=== PATIENT | male | born 1950 | race Hispanic/Latino ===

== ENCOUNTER 2019-03-05 06:00 | Day surgery (SDC) | payer OTHER ==
[2019-03-02 15:18] VITALS: BP 117/70
[2019-03-02 15:25] LABS: BASOPHILS % (AUTO) 0.6 % (0.0-5.0); HEMATOCRIT 38.8 % (42-54); LYMPHOCYTES % (AUTO) 28.5 % (21.0-51.0); MEAN CORPUSCULAR HEMOGLOBIN 34.7 pg (27.0-33.0); MEAN CORPUSCULAR HGB CONC 34.3 g/dL (32.0-36.0); MONOCYTES % (AUTO) 6.8 % (3.0-13.0); NEUTROPHILS % (AUTO) 59.1 % (40.0-77.0); PLATELET COUNT (AUTO) 208 K/uL (130-400); RED BLOOD CELL COUNT(AUTO) 3.84 MIL/uL (4.50-6.20); RED CELL DISTRIBUTION WIDTH 13.1 % (11.0-15.5); WHITE BLOOD COUNT (AUTO) 6.9 K/uL (4.8-10.8)
[2019-03-02 15:29] LABS: APPEARANCE,URINE Clear (CLEAR); BILIRUBIN,URINE Small (NEGATIVE); COLOR,URINE Dark Yellow (YELLOW); GLUCOSE, URINE (UA) Negative (NEGATIVE); KETONES,URINE Negative (NEGATIVE); LEUKOCYTE ESTERASE ,URINE Small (NEGATIVE); NITRATE,URINE Negative (NEGATIVE); OCCULT BLOOD,URINE Negative (NEGATIVE); PROTEIN,URINE Negative (NEGATIVE)
[2019-03-02 15:33] LABS: CREATININE 0.8 mg/dL (0.5-1.5); POTASSIUM 4.4 mmol/L (3.5-5.1)
[2019-03-02 15:35] LABS: INR 0.99 (0.85-1.15); PARTIAL THROMBOPLASTIN TIME 26.4 SEC (26.3-35.5); PROTHROMBIN TIME 10.4 SEC (9.6-11.6)
[2019-03-02 15:41] LABS: BACTERIA,URINE Moderate /HPF (None Seen); MUCUS,URINE Moderate LPF (None Seen)
--- NOTE | 2019-03-02 16:39 | NUR ---
SPOKE WITH DARRIAN CARLIN ABOUT ABNORMAL LABS NO NEW ORDERS AT THIS TIME, CONTINUE WITH PROCEDURE.
[2019-03-05] VITALS (9 sets, daily range): BP systolic 100–153; BP diastolic 56–86
[~2019-03-05] VITALS: Ht 172.7 cm; Wt 79.5 kg
[~2019-03-05 06:00] MED LIST: ASPI-1005 PO; CLOP75TA32 PO; ISOS30TA6 PO; LISI10TA7 PO; METO50TA18 PO; OMEG-144 PO; RANO500T3 PO; ROSU20TA31 PO; SODIUM CHLORIDE 0.9% 500ML 500 ML IV SCH; VITA1CAP85 PO
[2019-03-05] MEDS ORDERED: SODIUM CHLORIDE 0.9% 1000ML 1,000 ML IV ONE (07:31)
[2019-03-05] MEDS ORDERED: LIDOCAINE HCL 2% 20ML ONE (08:15)
[2019-03-05] MEDS ORDERED: BIVALIRUDIN 250 MG/VIAL IV ONE (08:17)
[2019-03-05] MEDS ORDERED: NICARDIPINE HCL 25 MG/10 ML ML IV ONE (08:17)
[2019-03-05] MEDS ORDERED: HEPARIN SODIUM 1000UNIT/ML 10ML VIAL ONE (08:17)
[2019-03-05] MEDS ORDERED: NITROGLYCERIN 5 MG/ML 10 ML VIAL IV ONE (08:17)
[2019-03-05] MEDS ORDERED: FENTANYL CITRATE PF 50 MCG/1 ML 2ML VIAL ONE (08:19)
[2019-03-05] MEDS ORDERED: IOHEXOL 350 MG/ML 100ML INFUS..BTL IV ONE (08:19)
[2019-03-05] MEDS ORDERED: MIDAZOLAM HCL 1 MG/ML 2ML VIAL ONE (08:19)
[2019-03-05] MEDS ORDERED: IOHEXOL-350 50ML VIAL IV ONE (08:19)
[2019-03-05] MEDS ORDERED: ATROPINE SULFATE 0.1 MG/ML 10 ML SYG IVP ONE (09:59)
[2019-03-05] MEDS ORDERED: LIDOCAINE PF 2% 5ML ABBOJECT ONE (09:59)
[2019-03-05] MEDS ORDERED: DOPAMINE HCL 400 MG/D5%-WATER 0 ML IV ONE (09:59)
[2019-03-05] MEDS ORDERED: SODIUM CHLORIDE 0.9% 1000ML 1,000 ML IV SCH (10:35)
--- NOTE | 2019-03-05 10:40 | NUR ---
ASSESSMENT RECEIVED PT FROM [employer]IN[employer] STAFF ARIEL. INSTRUCTED PT ON IMPORTance of keeping right leg STRAIGHT AND NOT LIFTING HEAD UP OFF OF BED. PT AND FAMILY VERBALIZED UNDERSTANDING. REPORT GIVEN TO EMERY GARCIA.
--- NOTE | 2019-03-05 10:57 | NUR ---
PT RECEIVED AND ASSESSED BY JOY STANFORD RN UPON ARRIVAL.
--- NOTE | 2019-03-05 10:59 | NUR ---
PT. IS RESTING COMFORTABLY PULSES ARE STRONG AND BILATERAL TO L/EXT. RT. GROIN IS SOFT, DRESSING IS DRY AND INTACT.
--- NOTE | 2019-03-05 12:50 | NUR ---
PER GLENN RN/ PT. WILL BE SEEN OUTPATIENT MAY EAT AND GO HOME AND F./U WITH DR. PALOMARES.
--- NOTE | 2019-03-05 14:15 | NUR ---
PT. LEFT VIA WHEELCHAIR IN PVT CAR WITH SON. Mary APPT SCHEDULED WITH DR. PALOMARES. PT HAND NO COMPLICATION UPON D/C. NO BLEEDING AND NO HEMATOMA, NO PAIN UPON D/C PEDAL PULSES PRESENT TO BOTH LOWER/EXT.
== END 2019-03-05 14:15 ==
LOC: DAH 06:00 → SUH 06:00
PROVIDERS: ATTEND Internal Medicine Cardiovascular Disease
DX: I25.118 Atherosclerotic heart disease of native coronary artery with other forms of angina pectoris (principal); R94.39 Abnormal result of other cardiovascular function study; I10 Essential (primary) hypertension; E78.5 Hyperlipidemia, unspecified; I73.9 Peripheral vascular disease, unspecified; F17.210 Nicotine dependence, cigarettes, uncomplicated; Z72.89 Other problems related to lifestyle; Z79.82 Long term (current) use of aspirin; Z79.899 Other long term (current) drug therapy; Z79.01 Long term (current) use of anticoagulants; Z82.49 Family history of ischemic heart disease and other diseases of the circulatory system
CPT/HCPCS: 36415; 71045; 80048; 81001; 85025; 85610; 85730; 92920; 93005; 93459; A4215; A4216; A4221; A4222; A4223 ×3; A4606; A4663; C1725 ×2; C1760; C1769 ×4; C1887; C1894 ×3; J0583; J1644 ×2; J2250; J3010; J3490 ×2; J7030; Q9965 ×2; Q9967 ×2; 99156; 99157; J0461; J1265; J2001

== ENCOUNTER 2019-07-06 10:44 | Emergency (ER) | payer OTHER ==
[~2019-07-06 10:44] MED LIST changes: -ASPI-1005 PO; -CLOP75TA32 PO; -ISOS30TA6 PO; -LISI10TA7 PO; -METO50TA18 PO; -OMEG-144 PO; -RANO500T3 PO; -SODIUM CHLORIDE 0.9% 500ML 500 ML IV SCH
[2019-07-06 11:12] LABS: APPEARANCE,URINE TURBID (CLEAR); BILIRUBIN,URINE MODERATE (NEGATIVE); COLOR,URINE BROWN (YELLOW); GLUCOSE, URINE (UA) NEGATIVE (NEGATIVE); KETONES,URINE 5 mg/dL (NEGATIVE); LEUKOCYTE ESTERASE ,URINE SMALL (NEGATIVE); NITRATE,URINE POSITIVE (NEGATIVE); OCCULT BLOOD,URINE LARGE (NEGATIVE); PH,URINE 6.5 (5.0-8.0); PROTEIN,URINE >=300 mg/dL (NEGATIVE)
[2019-07-06 11:23] LABS: RBC,URINE TNTC /HPF (0-1); WBC,URINE >100 /HPF (0-1)
[2019-07-06 11:24] LABS: BACTERIA,URINE Many /HPF (None Seen); SQUAMOUS EPITHELIAL CELL,UR Few /HPF (0-2)
[2019-07-06 11:29] LABS: BASOPHILS % (AUTO) 0.2 % (0.0-5.0); HEMATOCRIT 39.9 % (42-54); LYMPHOCYTES % (AUTO) 14.8 % (21.0-51.0); MEAN CORPUSCULAR HEMOGLOBIN 31.7 pg (27.0-33.0); MEAN CORPUSCULAR HGB CONC 32.8 g/dL (32.0-36.0); MEAN CORPUSCULAR VOLUME 96.6 fL (79-99); MONOCYTES % (AUTO) 9.6 % (3.0-13.0); NEUTROPHILS % (AUTO) 73.2 % (40.0-77.0); PLATELET COUNT (AUTO) 230 K/uL (130-400); RED BLOOD CELL COUNT(AUTO) 4.13 MIL/uL (4.50-6.20); RED CELL DISTRIBUTION WIDTH 13.9 % (11.0-15.5); WHITE BLOOD COUNT (AUTO) 8.7 K/uL (4.8-10.8)
[2019-07-06 11:36] LABS: CREATININE 0.8 mg/dL (0.5-1.5); POTASSIUM 4.2 mmol/L (3.5-5.1)
[2019-07-06 11:41] LABS: ALBUMIN 3.1 g/dL (3.5-5.0); BILIRUBIN,TOTAL 0.3 mg/dL (0.2-1.0); TOTAL PROTEIN, SERUM 8.3 g/dL (6.0-8.3)
[2019-07-06] MEDS ORDERED: LIDOCAINE HCL-MPF 1% 2ML VIAL ONE (12:27)
[2019-07-06] MEDS ORDERED: CEFTRIAXONE SODIUM 1 GM ONE (12:27)
== END 2019-07-06 13:59 | disposition home or self-care (01) ==
LOC: EDH 10:44
DX: N30.90 Cystitis, unspecified without hematuria (principal); I25.10 Atherosclerotic heart disease of native coronary artery without angina pectoris; I10 Essential (primary) hypertension; E78.00 Pure hypercholesterolemia, unspecified; Z72.0 Tobacco use
CPT/HCPCS: 36415; 74176; 80053; 81001; 85025; 87077; 87088 ×2; 87186; 96372; 99284; J0696; J3490

== ENCOUNTER → 2021-12-28 | Outpatient (CLI) | payer OTHER | END | disposition home or self-care (01) | LOC: RAH 11:03 | PROVIDERS: ATTEND Otolaryngology Plastic Surgery within the Head & Neck | DX: I88.9 Nonspecific lymphadenitis, unspecified (principal) | CPT/HCPCS: 76536 ==

== ENCOUNTER → 2022-01-14 | Outpatient (CLI) | payer OTHER ==
[~2022-01-14] MED LIST changes: +AEC81 PO; +ATOR40TA69 PO; +LIDOCAINE HCL 1% 20 ML VIAL ONE; +METO25TA6 PO; +NITR0.4T50 SL; +OMEG-148 PO
[2022-01-14 10:47] LABS: INR 0.94 (0.85-1.15); PROTHROMBIN TIME 10.3 SEC (9.6-11.6)
[2022-01-14 10:49] LABS: PARTIAL THROMBOPLASTIN TIME 26.6 SEC (26.3-35.5)
== END | disposition home or self-care (01) ==
LOC: RAH 09:52
PROVIDERS: ATTEND Otolaryngology Plastic Surgery within the Head & Neck
DX: D11.0 Benign neoplasm of parotid gland (principal); Z79.01 Long term (current) use of anticoagulants; Z87.891 Personal history of nicotine dependence
CPT/HCPCS: 36415; 38505; 76942; 85610; 85730; 88173; 88305; 88341; 88342

== ENCOUNTER 2022-03-02 09:22 | Day surgery (SDC) | payer OTHER ==
[2022-02-25 11:47] LABS: BASOPHILS % (AUTO) 1.1 % (0.0-5.0); EOSINOPHILS % (AUTO) 3.4 % (0.0-8.0); HEMATOCRIT 39.2 % (42-54); LYMPHOCYTES % (AUTO) 40.8 % (21.0-51.0); MEAN CORPUSCULAR HEMOGLOBIN 33.2 pg (27.0-33.0); MEAN CORPUSCULAR HGB CONC 33.2 g/dL (32.0-36.0); MONOCYTES % (AUTO) 10.7 % (3.0-13.0); PLATELET COUNT (AUTO) 203 K/uL (130-400); RED BLOOD CELL COUNT(AUTO) 3.92 MIL/uL (4.50-6.20); RED CELL DISTRIBUTION WIDTH 13.5 % (11.0-15.5); WHITE BLOOD COUNT (AUTO) 4.7 K/uL (4.8-10.8)
[2022-02-25 11:49] LABS: CREATININE 0.6 mg/dL (0.5-1.5); POTASSIUM 3.9 mmol/L (3.5-5.1)
[2022-03-01 10:28] VITALS: BP 131/71
[~2022-03-02] VITALS: Ht 170.2 cm; Wt 75.9 kg
[2022-03-02] VITALS (16 sets, daily range): BP systolic 98–160; BP diastolic 61–88
[~2022-03-02 09:22] MED LIST changes: +BACITRACIN 28.4 GM OINT TP ONE; +EPINEPHRINE 1 MG/ML 30ML VIAL IJ ONE; -LIDOCAINE HCL 1% 20 ML VIAL ONE
[2022-03-02] MEDS ORDERED: LIDOCAINE 1%-EPI 1:100,000 20 ML VIAL IJ SCH (09:30)
[2022-03-02] MEDS ORDERED: LACTATED RINGERS 1000ML 1,000 ML IV ONE (09:35)
[2022-03-02] MEDS ORDERED: GLYCOPYRROLATE 1 MG/5 ML SYRINGE ONE (10:01)
[2022-03-02] MEDS ORDERED: LIDOCAINE PF 100MG/5ML (2%) SYRINGE 5ML ONE (10:01)
[2022-03-02] MEDS ORDERED: PROPOFOL 10 MG/ML 20ML VIAL IV ONE ×2 (10:01→11:31)
[2022-03-02] MEDS ORDERED: FENTANYL CITRATE PF 50 MCG/1 ML 2ML VIAL ONE (10:02)
[2022-03-02] MEDS ORDERED: ROCURONIUM 10MG/1ML SYR 10 MG/ML ML ONE (10:02)
[2022-03-02] MEDS ORDERED: CEFAZOLIN SODIUM 1 GM VIAL ONE (10:22)
== END 2022-03-02 13:20 | disposition home or self-care (01) ==
LOC: DAH 09:22
PROVIDERS: ATTEND Otolaryngology Plastic Surgery within the Head & Neck
DX: C44.81 Basal cell carcinoma of overlapping sites of skin (principal); Z20.822 Contact with and (suspected) exposure to COVID-19; I25.10 Atherosclerotic heart disease of native coronary artery without angina pectoris; Z79.01 Long term (current) use of anticoagulants; Z79.899 Other long term (current) drug therapy; Z95.1 Presence of aortocoronary bypass graft
CPT/HCPCS: 80048; 85025; 87426; 36415; 93005; 42415; C1729; J7120; J3010; J0690; J3490; J0171; J2001; J2704 ×2; A4556; A4649; A4223; A4222; A4221; A4663; A4600

== ENCOUNTER → 2022-10-01 | Outpatient (CLI) | payer OTHER ==
[~2022-10-01] MED LIST changes: -AEC81 PO; -BACITRACIN 28.4 GM OINT TP ONE; -EPINEPHRINE 1 MG/ML 30ML VIAL IJ ONE; +IOHEXOL 350 MG/ML 100ML INFUS..BTL IV ONE; -ROSU20TA31 PO; -VITA1CAP85 PO
== END | disposition home or self-care (01) ==
LOC: RAH 07:43
PROVIDERS: ATTEND Internal Medicine Cardiovascular Disease
DX: I25.810 Atherosclerosis of coronary artery bypass graft(s) without angina pectoris (principal); K44.9 Diaphragmatic hernia without obstruction or gangrene
CPT/HCPCS: 71275; Q9967

== ENCOUNTER 2023-03-22 06:10 | Day surgery (SDC) | payer OTHER ==
[2023-03-18 08:17] LABS: BASOPHILS # (AUTO) 0.05 K/uL (0.00-0.20); BASOPHILS % (AUTO) 0.7 % (0.0-5.0); EOSINOPHILS # (AUTO) 0.19 K/uL (0.00-0.70); EOSINOPHILS % (AUTO) 2.8 % (0.0-8.0); HEMATOCRIT 40.8 % (42-54); IMMATURE GRANULOCYTE ABSOLUTE 0.01 K/uL (0-1); LYMPHOCYTES # (AUTO) 2.1 K/uL (1.0-4.8); MEAN CORPUSCULAR HEMOGLOBIN 34.5 pg (27.0-33.0); MEAN CORPUSCULAR HGB CONC 34.1 g/dL (32.0-36.0); MEAN CORPUSCULAR VOLUME 101.2 fL (79-99); MONOCYTES # (AUTO) 0.6 K/uL (0.1-1.0); NEUTROPHILS # (AUTO) 3.7 K/uL (1.8-7.7); NEUTROPHILS % (AUTO) 55.4 % (40.0-77.0); PLATELET COUNT (AUTO) 240 K/uL (130-400); RED BLOOD CELL COUNT(AUTO) 4.03 MIL/uL (4.50-6.20); WHITE BLOOD COUNT (AUTO) 6.7 K/uL (4.8-10.8)
[2023-03-18 08:20] LABS: APPEARANCE,URINE CLEAR (CLEAR); BILIRUBIN,URINE NEGATIVE (NEGATIVE); COLOR,URINE YELLOW (YELLOW); GLUCOSE, URINE (UA) NEGATIVE (NEGATIVE); KETONES,URINE NEGATIVE (NEGATIVE); LEUKOCYTE ESTERASE ,URINE 75 Leu/uL (NEGATIVE); NITRATE,URINE NEGATIVE (NEGATIVE); OCCULT BLOOD,URINE NEGATIVE (NEGATIVE); PH,URINE 5.5 (5.0-8.0); PROTEIN,URINE 10 mg/dL (NEGATIVE)
[2023-03-18 08:24] LABS: ADD UA MICROSCOPIC YES
[2023-03-18 08:27] LABS: BACTERIA,URINE RARE /HPF (None Seen); MUCUS,URINE RARE LPF (None Seen); SQUAMOUS EPITHELIAL CELL,UR FEW /HPF (0-2)
[2023-03-18 08:27] LABS: CREATININE 0.7 mg/dL (0.5-1.5); POTASSIUM 3.5 mmol/L (3.5-5.1)
[2023-03-18 08:30] LABS: INR < 0.93 (0.85-1.15); PROTHROMBIN TIME 10.7 SEC (9.6-11.6)
[2023-03-18 08:32] LABS: PARTIAL THROMBOPLASTIN TIME 28.1 SEC (26.3-35.5)
[2023-03-18 09:03] VITALS: BP 133/63; PULSE 58; RESP 12
[2023-03-18 09:13] LABS: B-TYPE NATRIURETIC PEPTIDE 24 pg/mL (0-100)
[~2023-03-22] VITALS: Ht 177.8 cm; Wt 78.9 kg
[2023-03-22] VITALS (10 sets, daily range): BP systolic 105–135; BP diastolic 52–85; PULSE 51–77; RESP 14–19
[~2023-03-22 06:10] MED LIST changes: +CLOP75TA32 PO; -IOHEXOL 350 MG/ML 100ML INFUS..BTL IV ONE
[2023-03-22] MEDS ORDERED: 0.9%NACL 1000ML 1,000 ML IV ONE (07:45)
[2023-03-22] MEDS ORDERED: LIDOCAINE HCL 400MG/20ML VIAL ONE (10:45)
[2023-03-22] MEDS ORDERED: IOHEXOL 350 MG/ML 100ML INFUS..BTL IV ONE (10:45)
[2023-03-22] MEDS ORDERED: HEPARIN 10,000 UNIT/10ML (1,000 UNIT/ML) VIAL ONE (10:45)
[2023-03-22] MEDS ORDERED: FENTANYL CITRATE PF 50 MCG/1 ML 2ML VIAL ONE (10:45)
[2023-03-22] MEDS ORDERED: MIDAZOLAM HCL 1 MG/ML 2ML VIAL ONE (10:45)
[2023-03-22] MEDS ORDERED: IOHEXOL-350 50ML VIAL IV ONE (10:45)
[2023-03-22] MEDS ORDERED: BIVALIRUDIN 250 MG/VIAL IV ONE (10:45)
[2023-03-22] MEDS ORDERED: NITROGLYCERIN 50MG VIAL ONE (10:46)
[2023-03-22] MEDS ORDERED: SODIUM BICARB 50MEQ 50ML VIAL 50 ML ONE (11:05)
[2023-03-22] MEDS ORDERED: HYDRALAZINE 20MG/ML VIAL ONE (11:52)
[2023-03-22] MEDS ORDERED: 0.9%NACL 1000ML 1,000 ML IV SCH (12:30)
== END 2023-03-22 16:10 | disposition home or self-care (01) ==
LOC: DAH 06:10
PROVIDERS: ATTEND Internal Medicine Cardiovascular Disease
DX: I25.118 Atherosclerotic heart disease of native coronary artery with other forms of angina pectoris (principal); I25.2 Old myocardial infarction; I34.0 Nonrheumatic mitral (valve) insufficiency; I10 Essential (primary) hypertension; E78.5 Hyperlipidemia, unspecified; Z82.49 Family history of ischemic heart disease and other diseases of the circulatory system; Z87.891 Personal history of nicotine dependence; Z72.89 Other problems related to lifestyle; Z79.899 Other long term (current) drug therapy
CPT/HCPCS: 80048; 83880; 85025; 85610; 85730; 87088; 81001; 36415; 71045; 93005; 93459; C1769; C1894 ×2; C1760 ×3; Q9965; J3010; J3490 ×3; J7030; J0360; J2250; J1644; Q9967 ×2; A4215; A4222; A4221; A4663; A4216; A4606; A4223 ×3; 99156; 99157; J0583

== ENCOUNTER 2023-10-16 11:54 | Inpatient (IN) | payer OTHER ==
[2023-10-16] VITALS (23 sets, daily range): BP systolic 94–120; BP diastolic 40–85; PULSE 90–114; RESP 12–24; O2SAT 96–100
[~2023-10-16] VITALS: Ht 167.6 cm; Wt 74.3 kg
[2023-10-16 12:27] LABS: ABG OXYGEN SATURATION 20.9 % (95.0-99.0); BASE EXCESS,VENOUS BLOOD GAS -2.6 (-2.0-3.0); HCO3,VENOUS BLOOD GAS 22.1 (21.0-28.0); PCO2,VENOUS BLOOD GAS 38 (32-45); PO2,VENOUS BLOOD GAS 15.7 mmHg (35.0-45.0); VENT MODE, BG NC (ROOM AIR)
[2023-10-16] MEDS: 0.9%NACL 1000ML 1,983 ML IV ONE (12:31)
[2023-10-16] MEDS: ZOSYN 3.375GM +NS 50ML IVPB ONE (12:44)
[2023-10-16 13:11] LABS: BASOPHILS # (AUTO) 0.04 K/uL (0.00-0.20); BASOPHILS % (AUTO) 0.4 % (0.0-5.0); EOSINOPHILS # (AUTO) 0.02 K/uL (0.00-0.70); EOSINOPHILS % (AUTO) 0.2 % (0.0-8.0); HEMATOCRIT 38.9 % (42-54); IMMATURE GRANULOCYTE ABSOLUTE 0.06 K/uL (0-1); LYMPHOCYTES # (AUTO) 0.4 K/uL (1.0-4.8); LYMPHOCYTES % (AUTO) 3.9 % (21.0-51.0); MEAN CORPUSCULAR HGB CONC 36.5 g/dL (32.0-36.0); MEAN CORPUSCULAR VOLUME 93.1 fL (79-99); MONOCYTES # (AUTO) 0.1 K/uL (0.1-1.0); NEUTROPHILS # (AUTO) 8.4 K/uL (1.8-7.7); NEUTROPHILS % (AUTO) 93.8 % (40.0-77.0); PLATELET COUNT (AUTO) 58 K/uL (130-400); RED BLOOD CELL COUNT(AUTO) 4.18 MIL/uL (4.50-6.20); WHITE BLOOD COUNT (AUTO) 8.9 K/uL (4.8-10.8)
[2023-10-16 13:24] LABS: POTASSIUM 3.5 mmol/L (3.5-5.1)
[2023-10-16 13:28] LABS: BILIRUBIN,TOTAL 0.6 mg/dL (0.2-1.0); TOTAL PROTEIN, SERUM 6.4 g/dL (6.0-8.3)
[2023-10-16 14:27] LABS: PLATELET MORPHOLOGY COMMENT DECREASED
[2023-10-16 15:21] LABS: ADD UA MICROSCOPIC YES; APPEARANCE,URINE CLEAR (CLEAR); BILIRUBIN,URINE NEGATIVE (NEGATIVE); COLOR,URINE LIGHT-YELLOW (YELLOW); GLUCOSE, URINE (UA) NEGATIVE (NEGATIVE); KETONES,URINE NEGATIVE (NEGATIVE); LEUKOCYTE ESTERASE ,URINE NEGATIVE Leu/uL (NEGATIVE); NITRATE,URINE NEGATIVE (NEGATIVE); PROTEIN,URINE 20 mg/dL (NEGATIVE); UROBILINOGEN,URINE 0.2 mg/dL (0.2-1.0)
[2023-10-16 15:23] LABS: BACTERIA,URINE RARE /HPF (None Seen); SQUAMOUS EPITHELIAL CELL,UR RARE /HPF (0-2)
[2023-10-16 15:27] LABS: SARS-CoV-2, RNA, NAAT NEGATIVE SARS CoV-2 (NEGATIVE)
[2023-10-16] MEDS: ACETAMINOPHEN 500 MG TABLET PO ONE (15:27)
[2023-10-16 15:31] LABS: INFLUENZA TYPE A Negative For Type A (NEGATIVE); INFLUENZA TYPE B Negative For Type B (NEGATIVE)
[2023-10-16] MEDS ORDERED: DOCUSATE SODIUM 100 MG CAP PO PRN ×2 (16:30→19:30)
[2023-10-16] MEDS ORDERED: POLYETHYLENE GLYCOL 3350 17 GM POWD.PACK PO PRN (16:30)
[2023-10-16] MEDS: ZOSYN 3.375GM +NS 50ML IVPB SCH (16:41)
[2023-10-16] MEDS: ALBUTEROL 0.083% 2.5 MG/3 ML INH IH PRN (16:48)
[2023-10-16] MEDS ORDERED: 0.9%NACL 50ML IV SCH (17:00)
[2023-10-16] MEDS: 0.9%NACL 1000ML 1,000 ML IV SCH (17:03)
[2023-10-16 17:30] LABS: AMYLASE 48 U/L (25-115); CREATINE KINASE, TOTAL 31 U/L (21-232)
[2023-10-16] MEDS: NOREPINEPHRIN 4MG/NS 250ML 250 ML IV SCH (17:34)
[2023-10-16] MEDS ORDERED: IOHEXOL 350 MG/ML 100ML INFUS..BTL IV ONE (18:28)
[2023-10-16] MEDS ORDERED: ACETAMINOPHEN 650 MG SUPPOSITORY RC PRN (19:30)
[2023-10-16] MEDS: ENOXAPARIN SODIUM 80 MG/0.8 ML SQ ONE (20:54)
[2023-10-16] MEDS: INSULIN HUMULIN R 100 UNIT/ML 3ML SQ SCH (21:00)
[2023-10-16] MEDS: ONDANSETRON 4MG INJ IVP PRN (21:36)
[2023-10-16] MEDS: TEMAZEPAM 15 MG CAPSULE PO PRN (21:36)
[2023-10-16 22:43] LABS: CREATININE 0.9 mg/dL (0.5-1.3); POTASSIUM 3.1 mmol/L (3.5-5.1)
[2023-10-16] MEDS: POTASSIUM CHLORIDE 10MEQ/100ML 100 ML IV PRN (23:58)
[2023-10-17] VITALS (78 sets, daily range): BP systolic 75–141; BP diastolic 31–90; PULSE 68–127; RESP 8–37; O2SAT 92–97
[2023-10-17] MEDS: POTASSIUM CHLORIDE 10% ELIXIR 20 MEQ/15 ML UDCUP PO PRN (01:50)
[2023-10-17] MEDS: MAGNESIUM 2GM PREMIX 50ML 50 ML IV PRN (01:52)
[2023-10-17 04:05] LABS: HEMOGLOBIN A1C 5.5 % (4.0-6.0)
[2023-10-17 04:19] LABS: ALBUMIN 1.7 g/dL (3.5-5.0); BILIRUBIN,TOTAL 0.7 mg/dL (0.2-1.0); CREATININE 0.8 mg/dL (0.5-1.3); POTASSIUM 3.7 mmol/L (3.5-5.1); TOTAL PROTEIN, SERUM 5.5 g/dL (6.0-8.3)
[2023-10-17] MEDS ORDERED: ATOR40TA71 PO (06:00)
[2023-10-17] MEDS ORDERED: ASPI-1197 PO (06:00)
[2023-10-17] MEDS ORDERED: TAMS-1 PO (06:00)
[2023-10-17] MEDS ORDERED: PANT20TA18 PO (06:00)
[2023-10-17] MEDS ORDERED: LISI2.5T13 PO (06:00)
[2023-10-17] MEDS ORDERED: MELO-106 PO (06:00)
[2023-10-17 06:21] LABS: ABG BASE EXCESS -3.6 mmol/L (-2.0-3.0); ABG HCO3 20.2 mmol/L (21.0-28.0); ABG OXYGEN SATURATION 96.8 % (95.0-99.0); ABG PCO2 33 mmHg (35-48); ABG PH 7.404 (7.35-7.450); CARBON MONOXIDE 0.7; DEVICE COMMENT LR RA; HHb 3.2; PO2, ARTERIAL BG 92.2 mmHg (83.0-108.0); VENT MODE, BG 2LNC (ROOM AIR)
[2023-10-17] MEDS ORDERED: NITROGLYCERIN 0.4 MG SL TAB SL PRN (06:30)
[2023-10-17] MEDS ORDERED: GUAIFENESIN-DM 200/20 MG 10 ML PO PRN (06:30)
[2023-10-17] MEDS: IPRATROPIUM 0.5 MG/2.5 ML INH IH SCH (07:24)
[2023-10-17 08:40] LABS: HEMATOCRIT 39.1 % (42-54); MEAN CORPUSCULAR HEMOGLOBIN 34.1 pg (27.0-33.0); MEAN CORPUSCULAR HGB CONC 34.8 g/dL (32.0-36.0); PLATELET COUNT (AUTO) 42 K/uL (130-400); RED BLOOD CELL COUNT(AUTO) 3.99 MIL/uL (4.50-6.20); RED CELL DISTRIBUTION WIDTH 13.2 % (11.0-15.5); WHITE BLOOD COUNT (AUTO) 10.8 K/uL (4.8-10.8)
[2023-10-17] MEDS: PANTOPRAZOLE 40 MG/VIAL IVP SCH (08:56)
[2023-10-17] MEDS ORDERED: ENOXAPARIN SODIUM 80 MG/0.8 ML SQ SCH (09:00)
[2023-10-17] MEDS: ASPIRIN 81MG CHEW TAB PO SCH (09:00)
[2023-10-17 09:03] LABS: BAND NEUTROPHILS % (MANUAL) 4 % (0-2); LYMPHOCYTES % (MANUAL) 1 % (22-44); MAN.DIFF COMMENT-IMPRESSION MANUAL DIFFERENTIAL; MONOCYTES % (MANUAL) 1 % (2-9); PLATELET MORPHOLOGY COMMENT MARKED DECREASE; SEGMENTED NEUTROPHILS % 94 % (40-70); TOTAL CELLS COUNTED 100
[2023-10-17 10:24] LABS: ALCOHOL, BLOOD < 3 mg/dL (0-10); PHOSPHORUS 3.1 mg/dL (2.5-4.9)
[2023-10-17] MEDS ORDERED: PHARMACY COMMUNICATION MISC PRN (10:30)
[2023-10-17] MEDS ORDERED: PROMETHAZINE HCL 25 MG TABLET PO PRN (10:30)
[2023-10-17] MEDS ORDERED: LORAZEPAM 2 MG/ML 1 ML VIAL IVP PRN (10:30)
[2023-10-17] MEDS ORDERED: CHLORDIAZEPOXIDE HCL 25 MG CAP PO PRN (10:30)
[2023-10-17] MEDS: MIDODRINE HCL 5 MG TABLET PO PRN (17:11)
[2023-10-17] MEDS: TAMSULOSIN HCL 0.4 MG CAP.ER.24H PO SCH (20:35)
[2023-10-17] MEDS: ATORVASTATIN 40 MG TABLET PO SCH (20:36)
[2023-10-17] MEDS: ACETAMINOPHEN 325 MG TAB PO PRN (20:36)
[2023-10-17] MEDS: LORAZEPAM 2 MG/ML 1 ML VIAL IVP PRN (21:57)
[2023-10-17 22:27] LABS: MAGNESIUM 2.3 mg/dL (1.80-2.40); PHOSPHORUS 2.7 mg/dL (2.5-4.9); POTASSIUM 3.7 mmol/L (3.5-5.1)
[2023-10-18] VITALS (92 sets, daily range): BP systolic 83–135; BP diastolic 38–104; PULSE 72–122; RESP 5–65; O2SAT 94–100
[2023-10-18] MEDS: CHLORDIAZEPOXIDE HCL 25 MG CAP PO PRN (02:09)
[2023-10-18 04:23] LABS: BASOPHILS # (AUTO) 0.04 K/uL (0.00-0.20); BASOPHILS % (AUTO) 0.4 % (0.0-5.0); EOSINOPHILS # (AUTO) 0.01 K/uL (0.00-0.70); EOSINOPHILS % (AUTO) 0.1 % (0.0-8.0); HEMATOCRIT 37.4 % (42-54); IMMATURE GRANULOCYTE ABSOLUTE 0.07 K/uL (0-1); LYMPHOCYTES # (AUTO) 1.2 K/uL (1.0-4.8); LYMPHOCYTES % (AUTO) 11.5 % (21.0-51.0); MEAN CORPUSCULAR HEMOGLOBIN 34.6 pg (27.0-33.0); MEAN CORPUSCULAR VOLUME 98.7 fL (79-99); MONOCYTES # (AUTO) 0.3 K/uL (0.1-1.0); MONOCYTES % (AUTO) 2.8 % (3.0-13.0); NEUTROPHILS # (AUTO) 8.8 K/uL (1.8-7.7); NEUTROPHILS % (AUTO) 84.5 % (40.0-77.0); PLATELET COUNT (AUTO) 38 K/uL (130-400); RED BLOOD CELL COUNT(AUTO) 3.79 MIL/uL (4.50-6.20); RED CELL DISTRIBUTION WIDTH 13.3 % (11.0-15.5); WHITE BLOOD COUNT (AUTO) 10.4 K/uL (4.8-10.8)
[2023-10-18 04:51] LABS: CREATININE 0.8 mg/dL (0.5-1.3); POTASSIUM 3.8 mmol/L (3.5-5.1)
[2023-10-18] MEDS ORDERED: COMPOUND IV REFRIGERATED 1 EACH IVSOLN MISC PRN (08:00)
[2023-10-18] MEDS: THIAMINE HCL 100 MG/ML 2ML VIAL IVP SCH (09:01)
[2023-10-18] MEDS: MULTIVITAMIN TABLET PO SCH (09:09)
[2023-10-18] MEDS: FOLIC ACID 5 MG/ML VIAL IV SCH (09:12)
[2023-10-18] MEDS: DEXTROSE 50%-WATER 50 ML DISP.SYRIN IV ONE (13:23)
[2023-10-18] MEDS ORDERED: GLUCAGON 1MG KIT 1 MG ML IM PRN (15:00)
[2023-10-18] MEDS: DEXTROSE 50%-WATER 50 ML DISP.SYRIN IV PRN (16:23)
[2023-10-18] MEDS: DEXMEDETOMIDINE 400MCG/NS100ML IV SCH (16:24)
[2023-10-18] MEDS: DIAZEPAM 5 MG TABLET PO SCH (18:02)
[2023-10-18] MEDS: DEXTROSE 10%-WATER 1,000 ML IV SCH (19:02)
[2023-10-19] VITALS (86 sets, daily range): BP systolic 86–128; BP diastolic 42–80; PULSE 63–128; RESP 16–46; O2SAT 93–99
[2023-10-19 05:00] LABS: HEMATOCRIT 32.9 % (42-54); LYMPHOCYTES % (AUTO) 20.7 % (21.0-51.0); MEAN CORPUSCULAR HEMOGLOBIN 33.6 pg (27.0-33.0); MEAN CORPUSCULAR VOLUME 96.2 fL (79-99); MONOCYTES % (AUTO) 2.6 % (3.0-13.0); NEUTROPHILS % (AUTO) 75.1 % (40.0-77.0); PLATELET COUNT (AUTO) 38 K/uL (130-400); RED BLOOD CELL COUNT(AUTO) 3.42 MIL/uL (4.50-6.20); RED CELL DISTRIBUTION WIDTH 13.8 % (11.0-15.5); WHITE BLOOD COUNT (AUTO) 11.7 K/uL (4.8-10.8)
[2023-10-19 05:01] LABS: BASOPHILS # (AUTO) 0.05 K/uL (0.00-0.20); BASOPHILS % (AUTO) 0.4 % (0.0-5.0); EOSINOPHILS # (AUTO) 0.03 K/uL (0.00-0.70); EOSINOPHILS % (AUTO) 0.3 % (0.0-8.0); LYMPHOCYTES # (AUTO) 2.4 K/uL (1.0-4.8); MONOCYTES # (AUTO) 0.3 K/uL (0.1-1.0); NEUTROPHILS # (AUTO) 8.8 K/uL (1.8-7.7)
[2023-10-19 05:39] LABS: BAND NEUTROPHILS % (MANUAL) 5 % (0-2); MAN.DIFF COMMENT-IMPRESSION MANUAL DIFFERENTIAL; SEGMENTED NEUTROPHILS % 95 % (40-70); TOTAL CELLS COUNTED 100
[2023-10-19 07:29] LABS: CREATININE 0.6 mg/dL (0.5-1.3); THYROID STIMULATING HORMONE 1.8 uIU/mL (0.36-3.74)
[2023-10-19] MEDS: THIAMINE HCL 100 MG/ML 2ML VIAL IVP SCH (08:32)
[2023-10-19 14:15] LABS: INR 1.05 (0.85-1.15); PROTHROMBIN TIME 12.3 SEC (9.6-11.6)
[2023-10-19 14:17] LABS: PARTIAL THROMBOPLASTIN TIME 31.7 SEC (26.3-35.5)
[2023-10-19] MEDS: DIAZEPAM 5 MG TABLET PO PRN (14:32)
[2023-10-19 14:48] LABS: HIV 1&2 ANTIBODY Non-Reactive (Negative)
[2023-10-19 14:49] LABS: HIV-1 p24 Antigen Non-Reactive (Negative)
[2023-10-20] VITALS (225 sets, daily range): BP systolic 79–154; BP diastolic 35–101; PULSE 43–96; RESP 11–49; O2SAT 94–98
[2023-10-20] MEDS: HALOPERIDOL INJ 5 MG/ML VIAL IV PRN (00:35)
[2023-10-20 06:04] LABS: BASOPHILS # (AUTO) 0.07 K/uL (0.00-0.20); BASOPHILS % (AUTO) 0.4 % (0.0-5.0); EOSINOPHILS # (AUTO) 0.06 K/uL (0.00-0.70); EOSINOPHILS % (AUTO) 0.4 % (0.0-8.0); HEMATOCRIT 36.8 % (42-54); IMMATURE GRANULOCYTE ABSOLUTE 0.14 K/uL (0-1); LYMPHOCYTES # (AUTO) 4.5 K/uL (1.0-4.8); LYMPHOCYTES % (AUTO) 28.9 % (21.0-51.0); MONOCYTES # (AUTO) 0.6 K/uL (0.1-1.0); MONOCYTES % (AUTO) 3.6 % (3.0-13.0); NEUTROPHILS # (AUTO) 10.3 K/uL (1.8-7.7); NEUTROPHILS % (AUTO) 65.8 % (40.0-77.0); PLATELET COUNT (AUTO) 52 K/uL (130-400); RED BLOOD CELL COUNT(AUTO) 3.68 MIL/uL (4.50-6.20); RED CELL DISTRIBUTION WIDTH 14.2 % (11.0-15.5); WHITE BLOOD COUNT (AUTO) 15.6 K/uL (4.8-10.8)
[2023-10-20 06:16] LABS: ALBUMIN 1.4 g/dL (3.5-5.0); BILIRUBIN,TOTAL 0.6 mg/dL (0.2-1.0); CREATININE 0.7 mg/dL (0.5-1.3); TOTAL PROTEIN, SERUM 5.4 g/dL (6.0-8.3)
[2023-10-20 06:21] LABS: BAND NEUTROPHILS % (MANUAL) 2 % (0-2); LYMPHOCYTES % (MANUAL) 9 % (22-44); MONOCYTES % (MANUAL) 3 % (2-9); SEGMENTED NEUTROPHILS % 86 % (40-70); TOTAL CELLS COUNTED 100
[2023-10-20 06:22] LABS: MAN.DIFF COMMENT-IMPRESSION MANUAL DIFFERENTIAL
[2023-10-20] MEDS ORDERED: VANCOMYCIN PROTOCOL PER PHARMACY IV SCH (07:30)
[2023-10-20] MEDS: CEFEPIME HCL 1 GM VIAL IVPB SCH (07:38)
[2023-10-20] MEDS: VANCOMYCIN 1.25 GM/250 ML BAG 250 ML IV SCH (08:01)
[2023-10-20] MEDS: METRONIDAZOLE 500MG/100ML BAG 100 ML IVPB SCH (13:17)
[2023-10-20] MEDS: LORAZEPAM 2 MG/ML 1 ML VIAL IVP PRN (22:41)
[2023-10-20 23:12] LABS: MAGNESIUM 1.8 mg/dL (1.80-2.40); POTASSIUM 3.6 mmol/L (3.5-5.1)
[2023-10-20] MEDS: CHLORDIAZEPOXIDE HCL 25 MG CAP PO SCH (23:40)
[2023-10-21] VITALS (113 sets, daily range): BP systolic 86–151; BP diastolic 37–97; PULSE 34–114; RESP 12–39; TEMP 98.1; O2SAT 93–100
[2023-10-21 08:20] LABS: HEMATOCRIT 38.7 % (42-54); MEAN CORPUSCULAR HEMOGLOBIN 33.6 pg (27.0-33.0); MEAN CORPUSCULAR HGB CONC 33.6 g/dL (32.0-36.0); PLATELET COUNT (AUTO) 72 K/uL (130-400); RED BLOOD CELL COUNT(AUTO) 3.87 MIL/uL (4.50-6.20); RED CELL DISTRIBUTION WIDTH 14.5 % (11.0-15.5); WHITE BLOOD COUNT (AUTO) 13.6 K/uL (4.8-10.8)
[2023-10-21 09:03] LABS: ALBUMIN 1.6 g/dL (3.5-5.0); BILIRUBIN,TOTAL 0.8 mg/dL (0.2-1.0); CREATININE 0.6 mg/dL (0.5-1.3); POTASSIUM 3.7 mmol/L (3.5-5.1); TOTAL PROTEIN, SERUM 5.9 g/dL (6.0-8.3)
[2023-10-21 09:55] LABS: LYMPHOCYTES % (MANUAL) 17 % (22-44); MAN.DIFF COMMENT-IMPRESSION MANUAL DIFFERENTIAL; MONOCYTES % (MANUAL) 2 % (2-9); SEGMENTED NEUTROPHILS % 81 % (40-70); TOTAL CELLS COUNTED 100
[2023-10-21 09:56] LABS: PLATELET MORPHOLOGY COMMENT DECREASED
[2023-10-21] MEDS: VANCOMYCIN 1.5 GM/250 ML BAG 250 ML IV SCH (10:23)
[2023-10-22] VITALS (42 sets, daily range): BP systolic 94–143; BP diastolic 44–85; PULSE 61–118; RESP 14–30; O2SAT 92–99
[2023-10-22] MEDS ORDERED: PHARMACY COMMUNICATION MISC PRN (02:30)
[2023-10-22] MEDS ORDERED: LORAZEPAM 2 MG/ML 1 ML VIAL IVP PRN ×2 (02:30)
[2023-10-22] MEDS ORDERED: CHLORDIAZEPOXIDE HCL 25 MG CAP PO PRN ×2 (02:30)
[2023-10-22 05:52] LABS: HEMATOCRIT 32.2 % (42-54); MEAN CORPUSCULAR HEMOGLOBIN 33.9 pg (27.0-33.0); MEAN CORPUSCULAR HGB CONC 33.5 g/dL (32.0-36.0); MEAN CORPUSCULAR VOLUME 100.9 fL (79-99); RED BLOOD CELL COUNT(AUTO) 3.19 MIL/uL (4.50-6.20); RED CELL DISTRIBUTION WIDTH 14.5 % (11.0-15.5)
[2023-10-22 06:13] LABS: ALBUMIN 1.4 g/dL (3.5-5.0); BILIRUBIN,TOTAL 0.7 mg/dL (0.2-1.0); CREATININE 0.4 mg/dL (0.5-1.3); POTASSIUM 3.8 mmol/L (3.5-5.1); TOTAL PROTEIN, SERUM 5.5 g/dL (6.0-8.3)
[2023-10-22] MEDS ORDERED: BISACODYL 10 MG SUPP.RECT RC PRN (09:30)
[2023-10-22] MEDS: DIAZEPAM 5 MG TABLET PO SCH (09:49)
[2023-10-22] MEDS: DOCUSATE NA 100MG/10ML UDCUP PO SCH (09:51)
[2023-10-22] MEDS: LACTULOSE 20 GM/30 ML UDCUP PO PRN (14:46)
[2023-10-22] MEDS: THIAMINE HCL 100 MG/ML 2ML VIAL IVP SCH (16:45)
[2023-10-22] MEDS ORDERED: [UNRECOGNIZED DRUG - REMARK] MISC SCH (17:30)
[2023-10-22] MEDS: ENOXAPARIN SODIUM 40 MG/0.4 ML SYRINGE SQ SCH (20:06)
[2023-10-23] VITALS (30 sets, daily range): BP systolic 128–167; BP diastolic 54–97; PULSE 81–110; RESP 13–25; O2SAT 96–99
[2023-10-23 04:01] LABS: BASOPHILS # (AUTO) 0.04 K/uL (0.00-0.20); BASOPHILS % (AUTO) 0.4 % (0.0-5.0); EOSINOPHILS # (AUTO) 0.04 K/uL (0.00-0.70); EOSINOPHILS % (AUTO) 0.4 % (0.0-8.0); HEMATOCRIT 32.6 % (42-54); IMMATURE GRANULOCYTE ABSOLUTE 0.03 K/uL (0-1); LYMPHOCYTES # (AUTO) 4.6 K/uL (1.0-4.8); LYMPHOCYTES % (AUTO) 43.7 % (21.0-51.0); MEAN CORPUSCULAR HGB CONC 33.4 g/dL (32.0-36.0); MEAN CORPUSCULAR VOLUME 98.8 fL (79-99); MONOCYTES # (AUTO) 0.6 K/uL (0.1-1.0); MONOCYTES % (AUTO) 5.5 % (3.0-13.0); NEUTROPHILS # (AUTO) 5.2 K/uL (1.8-7.7); NEUTROPHILS % (AUTO) 49.7 % (40.0-77.0); PLATELET COUNT (AUTO) 135 K/uL (130-400); RED CELL DISTRIBUTION WIDTH 14.3 % (11.0-15.5); WHITE BLOOD COUNT (AUTO) 10.5 K/uL (4.8-10.8)
[2023-10-23 04:25] LABS: CREATININE 0.5 mg/dL (0.5-1.3); POTASSIUM 3.3 mmol/L (3.5-5.1)
[2023-10-23 05:00] LABS: EOSINOPHILS % (MANUAL) 1 % (1-6); LYMPHOCYTES % (MANUAL) 25 % (22-44); MONOCYTES % (MANUAL) 6 % (2-9); SEGMENTED NEUTROPHILS % 68 % (40-70); TOTAL CELLS COUNTED 100
[2023-10-23 05:01] LABS: MAN.DIFF COMMENT-IMPRESSION MANUAL DIFFERENTIAL; PLATELET MORPHOLOGY COMMENT ADEQUATE; WBC MORPHOLOGY SMUDGE CELLS 1+
[2023-10-23] MEDS: POLYETHYLENE GLYCOL 3350 17 GM POWD.PACK PO SCH (08:38)
[2023-10-24] VITALS (16 sets, daily range): BP systolic 130–168; BP diastolic 70–101; PULSE 80–103; RESP 15–28; O2SAT 95–97
[2023-10-24 05:33] LABS: HEMATOCRIT 34.6 % (42-54); MEAN CORPUSCULAR HEMOGLOBIN 33.7 pg (27.0-33.0); MEAN CORPUSCULAR HGB CONC 33.5 g/dL (32.0-36.0); MEAN CORPUSCULAR VOLUME 100.6 fL (79-99); RED BLOOD CELL COUNT(AUTO) 3.44 MIL/uL (4.50-6.20); RED CELL DISTRIBUTION WIDTH 14.2 % (11.0-15.5); WHITE BLOOD COUNT (AUTO) 7.8 K/uL (4.8-10.8)
[2023-10-24 05:44] LABS: CREATININE 0.5 mg/dL (0.5-1.3); POTASSIUM 3.6 mmol/L (3.5-5.1)
[2023-10-25] VITALS (19 sets, daily range): BP systolic 100–162; BP diastolic 50–111; PULSE 69–114; RESP 14–25; O2SAT 95–98
[2023-10-25 04:17] LABS: BASOPHILS # (AUTO) 0.03 K/uL (0.00-0.20); BASOPHILS % (AUTO) 0.4 % (0.0-5.0); EOSINOPHILS # (AUTO) 0.06 K/uL (0.00-0.70); EOSINOPHILS % (AUTO) 0.7 % (0.0-8.0); HEMATOCRIT 33.4 % (42-54); IMMATURE GRANULOCYTE ABSOLUTE 0.03 K/uL (0-1); LYMPHOCYTES # (AUTO) 3.5 K/uL (1.0-4.8); LYMPHOCYTES % (AUTO) 41.7 % (21.0-51.0); MEAN CORPUSCULAR HEMOGLOBIN 33.7 pg (27.0-33.0); MEAN CORPUSCULAR HGB CONC 33.8 g/dL (32.0-36.0); MEAN CORPUSCULAR VOLUME 99.7 fL (79-99); MONOCYTES # (AUTO) 0.7 K/uL (0.1-1.0); MONOCYTES % (AUTO) 8.7 % (3.0-13.0); NEUTROPHILS % (AUTO) 48.1 % (40.0-77.0); PLATELET COUNT (AUTO) 189 K/uL (130-400); RED BLOOD CELL COUNT(AUTO) 3.35 MIL/uL (4.50-6.20); WHITE BLOOD COUNT (AUTO) 8.3 K/uL (4.8-10.8)
[2023-10-25 04:36] LABS: ALBUMIN 1.6 g/dL (3.5-5.0); BILIRUBIN,TOTAL 0.7 mg/dL (0.2-1.0); CREATININE 0.4 mg/dL (0.5-1.3); MAGNESIUM 1.9 mg/dL (1.80-2.40); POTASSIUM 3.7 mmol/L (3.5-5.1); TOTAL PROTEIN, SERUM 6.6 g/dL (6.0-8.3)
[2023-10-25] MEDS: KCL 20 MEQ ERTAB PO PRN (05:57)
[2023-10-25] MEDS: METOPROLOL TARTRATE 25 MG TAB PO SCH (08:51)
[2023-10-26] VITALS (14 sets, daily range): BP systolic 91–128; BP diastolic 51–71; PULSE 65–98; RESP 16–20; O2SAT 95–99
[2023-10-26 04:48] LABS: BASOPHILS # (AUTO) 0.02 K/uL (0.00-0.20); BASOPHILS % (AUTO) 0.3 % (0.0-5.0); EOSINOPHILS # (AUTO) 0.06 K/uL (0.00-0.70); EOSINOPHILS % (AUTO) 0.9 % (0.0-8.0); HEMATOCRIT 30.8 % (42-54); IMMATURE GRANULOCYTE ABSOLUTE 0.02 K/uL (0-1); LYMPHOCYTES # (AUTO) 3.3 K/uL (1.0-4.8); LYMPHOCYTES % (AUTO) 47.2 % (21.0-51.0); MEAN CORPUSCULAR HEMOGLOBIN 33.5 pg (27.0-33.0); MEAN CORPUSCULAR HGB CONC 34.1 g/dL (32.0-36.0); MEAN CORPUSCULAR VOLUME 98.4 fL (79-99); MONOCYTES # (AUTO) 0.8 K/uL (0.1-1.0); MONOCYTES % (AUTO) 10.8 % (3.0-13.0); NEUTROPHILS # (AUTO) 2.8 K/uL (1.8-7.7); NEUTROPHILS % (AUTO) 40.5 % (40.0-77.0); PLATELET COUNT (AUTO) 233 K/uL (130-400); RED BLOOD CELL COUNT(AUTO) 3.13 MIL/uL (4.50-6.20); RED CELL DISTRIBUTION WIDTH 14.1 % (11.0-15.5)
[2023-10-26 05:01] LABS: CREATININE 0.5 mg/dL (0.5-1.3); MAGNESIUM 2.1 mg/dL (1.80-2.40); POTASSIUM 3.9 mmol/L (3.5-5.1)
[2023-10-27] VITALS (16 sets, daily range): BP systolic 84–123; BP diastolic 46–70; PULSE 63–95; RESP 16–20; O2SAT 94–98
[2023-10-27 04:28] LABS: BASOPHILS # (AUTO) 0.02 K/uL (0.00-0.20); BASOPHILS % (AUTO) 0.3 % (0.0-5.0); EOSINOPHILS # (AUTO) 0.05 K/uL (0.00-0.70); EOSINOPHILS % (AUTO) 0.8 % (0.0-8.0); HEMATOCRIT 31.4 % (42-54); IMMATURE GRANULOCYTE ABSOLUTE 0.02 K/uL (0-1); LYMPHOCYTES # (AUTO) 3.2 K/uL (1.0-4.8); LYMPHOCYTES % (AUTO) 49.4 % (21.0-51.0); MEAN CORPUSCULAR HGB CONC 32.8 g/dL (32.0-36.0); MEAN CORPUSCULAR VOLUME 100.6 fL (79-99); MONOCYTES # (AUTO) 0.7 K/uL (0.1-1.0); NEUTROPHILS # (AUTO) 2.5 K/uL (1.8-7.7); NEUTROPHILS % (AUTO) 38.2 % (40.0-77.0); PLATELET COUNT (AUTO) 249 K/uL (130-400); RED BLOOD CELL COUNT(AUTO) 3.12 MIL/uL (4.50-6.20); RED CELL DISTRIBUTION WIDTH 14.2 % (11.0-15.5); WHITE BLOOD COUNT (AUTO) 6.5 K/uL (4.8-10.8)
[2023-10-27 04:51] LABS: CREATININE 0.4 mg/dL (0.5-1.3); MAGNESIUM 1.7 mg/dL (1.80-2.40); POTASSIUM 3.7 mmol/L (3.5-5.1)
[2023-10-27] MEDS: ONDANSETRON 4MG INJ IV PRN (14:19)
[2023-10-27 14:28] LABS: ABG BASE EXCESS 1.6 mmol/L (-2.0-3.0); ABG HCO3 26.4 mmol/L (21.0-28.0); ABG OXYGEN SATURATION 94.3 % (95.0-99.0); ABG PCO2 42 mmHg (35-48); ABG PH 7.414 (7.35-7.450); CARBON MONOXIDE 0.5; HHb 5.6; VENT MODE, BG NC (ROOM AIR)
[2023-10-27] MEDS ORDERED: 0.9% NACL 500ML IV.SOLN 500 ML IV SCH (14:30)
[2023-10-27] MEDS: LACTULOSE 20 GM/30 ML UDCUP PO ONE (15:55)
[2023-10-27] MEDS ORDERED: IOHEXOL-350 75 ML VIAL IV ONE (16:39)
[2023-10-28] VITALS (8 sets, daily range): BP systolic 101–108; BP diastolic 57–67; PULSE 53–99; RESP 14–22; O2SAT 95–97
[2023-10-28 04:49] LABS: BASOPHILS # (AUTO) 0.02 K/uL (0.00-0.20); BASOPHILS % (AUTO) 0.3 % (0.0-5.0); EOSINOPHILS # (AUTO) 0.05 K/uL (0.00-0.70); EOSINOPHILS % (AUTO) 0.7 % (0.0-8.0); HEMATOCRIT 29.7 % (42-54); IMMATURE GRANULOCYTE ABSOLUTE 0.02 K/uL (0-1); LYMPHOCYTES # (AUTO) 2.8 K/uL (1.0-4.8); LYMPHOCYTES % (AUTO) 42.4 % (21.0-51.0); MEAN CORPUSCULAR HEMOGLOBIN 33.3 pg (27.0-33.0); MEAN CORPUSCULAR HGB CONC 33.7 g/dL (32.0-36.0); MONOCYTES # (AUTO) 0.8 K/uL (0.1-1.0); MONOCYTES % (AUTO) 12.3 % (3.0-13.0); NEUTROPHILS # (AUTO) 2.9 K/uL (1.8-7.7); PLATELET COUNT (AUTO) 265 K/uL (130-400); RED CELL DISTRIBUTION WIDTH 14.2 % (11.0-15.5); WHITE BLOOD COUNT (AUTO) 6.7 K/uL (4.8-10.8)
[2023-10-28] MEDS: BISACODYL 10 MG SUPP.RECT RC ONE (04:58)
[2023-10-28 05:12] LABS: CREATININE 0.4 mg/dL (0.5-1.3); MAGNESIUM 1.6 mg/dL (1.80-2.40); POTASSIUM 3.5 mmol/L (3.5-5.1)
[2023-10-28] MEDS: THIAMINE HCL 100 MG TABLET PO SCH (09:24)
[2023-10-28] MEDS: METOPROLOL TARTRATE 25 MG TAB PO SCH (09:24)
[2023-10-28] MEDS ORDERED: IPRATROPIUM 0.5 MG/2.5 ML INH IH PRN (10:00)
[2023-10-28] MEDS: CHLORDIAZEPOXIDE HCL 25 MG CAP PO SCH (12:17)
[2023-10-28 14:05] LABS: MAGNESIUM 2.5 mg/dL (1.80-2.40); POTASSIUM 3.9 mmol/L (3.5-5.1)
[2023-10-29] MEDS ORDERED: MAGNESIUM OXIDE 400 MG TABLET PO SCH (09:00)
== END 2023-10-28 20:04 | DRG 871 ==
LOC: EDH 11:54 → EDHIP 16:25 → 2BH 18:22 → 4AH 10-25 16:30
PROVIDERS: ADMIT Internal Medicine Pulmonary Disease; ATTEND Internal Medicine Pulmonary Disease
DX: A41.9 Sepsis, unspecified organism (principal); G93.41 Metabolic encephalopathy; J18.9 Pneumonia, unspecified organism; J96.01 Acute respiratory failure with hypoxia; R65.21 Severe sepsis with septic shock; I50.43 Acute on chronic combined systolic (congestive) and diastolic (congestive) heart failure; E87.1 Hypo-osmolality and hyponatremia; N17.9 Acute kidney failure, unspecified; I13.0 Hypertensive heart and chronic kidney disease with heart failure and stage 1 through stage 4 chronic kidney disease, or unspecified chronic kidney disease; E46 Unspecified protein-calorie malnutrition; E87.20 Acidosis, unspecified; F10.239 Alcohol dependence with withdrawal, unspecified; R47.01 Aphasia; Z20.822 Contact with and (suspected) exposure to COVID-19; E86.0 Dehydration; N20.0 Calculus of kidney; N18.9 Chronic kidney disease, unspecified; E83.51 Hypocalcemia; E87.8 Other disorders of electrolyte and fluid balance, not elsewhere classified; D69.59 Other secondary thrombocytopenia; E16.2 Hypoglycemia, unspecified; E78.00 Pure hypercholesterolemia, unspecified; E88.09 Other disorders of plasma-protein metabolism, not elsewhere classified; I25.10 Atherosclerotic heart disease of native coronary artery without angina pectoris; I25.2 Old myocardial infarction; K21.9 Gastro-esophageal reflux disease without esophagitis; I49.3 Ventricular premature depolarization; K44.9 Diaphragmatic hernia without obstruction or gangrene; R13.10 Dysphagia, unspecified; Z86.718 Personal history of other venous thrombosis and embolism; Z87.891 Personal history of nicotine dependence; Z91.81 History of falling; Z95.1 Presence of aortocoronary bypass graft; Z68.26 Body mass index [BMI] 26.0-26.9, adult
CPT/HCPCS: 36415; 36600; 70450; 70551; 71045; 71270; 74018; 74176; 74230; 76376; 80048; 80053; 80202; 81001; 82140; 82150; 82435; 82550; 82803; 82947; 82948; 83036; 83605; 83690; 83735; 83880; 84100; 84132; 84145; 84295; 84439; 84443; 84484; 85018; 85025; 85027; 85378; 85610; 85730; 86701; 87040; 87071; 87205; 87390; 87635; 87804; 92526; 92610; 92611; 93005; 93306; 93356; 93880; 93970; 94640; 96365; 96372; 96374; A6250; C9113; G0378; J0692; J1630; J1650; J2060; J2405; J2543; J3411; J3475; J3480; J3490; J7070; Q9967; 3370; A4600; J3370

== ENCOUNTER → 2024-04-23 | Outpatient (CLI) | payer OTHER ==
[~2024-04-23] MED LIST changes: +ASPI-1197 PO; +ATOR40TA71 PO; -CLOP75TA32 PO; +IOHEXOL-350 75 ML VIAL IV ONE; -OMEG-148 PO; +PANT20TA18 PO; +TAMS-1 PO
--- NOTE | 2024-04-23 13:14 | HMCIMG ---
CT ANGIO ABD AORTA W RUNOFF REASON: Atherosclerotic heart disease of [place] coronary artery with unstable angin COMPARISON: None TECHNIQUE: Images are obtained from lung bases through the feet before and during bolus IV contrast infusion, 150 cc Omnipaque 350. 2-D and 3-D multiplanar reconstruction images were performed. FINDINGS: There is mild atherosclerotic change in the aorta. Renal and mesenteric artery origins are widely patent. There are some calcified plaque in the iliac arteries without focal narrowing. Common femoral arteries show plaque also, but appear patent. Right leg runoff shows atherosclerotic change in the superficial femoral artery. There is no significant focal stenosis. Popliteal artery appears patent. There is some calcification of the proximal trifurcation vessels but all 3 are patent to the ankle. Dorsalis pedis and posterior tibial arteries are patent to the foot. Left leg runoff shows some atherosclerotic change in the superficial femoral artery without significant focal narrowing. There is severe stenosis of the tibioperoneal trunk after the origin of the anterior tibial artery. Posterior tibial artery is heavily calcified but patent to the foot. Anterior tibial and peroneal arteries are patent to the ankle, the dorsalis pedis artery appears small and not well visualized on the left Noncontrast images show left renal cysts. The liver, spleen and right kidney. Normal. Pancreas and gallbladder appear normal as do bowel loops. Prostate moderately enlarged, the urinary bladder appears thick walled with wall measuring up to 12 mm. Anterior abdominal wall appears intact. There is a right knee effusion with a small Bejarano's cyst. IMPRESSION: 1. Mild atherosclerotic changes in the aortoiliac system without significant focal stenosis. 2. No significant arterial inflow occlusion in the right lower extremity. 3. Severe stenosis of the left tibial peroneal trunk, the anterior tibial artery is patent to the ankle but the dorsalis pedis artery is barely visualized and very small. 4. No acute nonvascular abnormality, incidental note is made of a right knee joint effusion.
== END | disposition home or self-care (01) ==
LOC: RAH 09:55 → EDSTATUS 10:00
PROVIDERS: ATTEND Internal Medicine Cardiovascular Disease
DX: I70.0 Atherosclerosis of aorta (principal); I25.110 Atherosclerotic heart disease of native coronary artery with unstable angina pectoris; I70.202 Unspecified atherosclerosis of native arteries of extremities, left leg; M25.462 Effusion, left knee
CPT/HCPCS: 75635; Q9967 ×2

== ENCOUNTER 2024-11-02 16:44 | Observation (INO) | payer OTHER ==
[~2024-11-02] VITALS: Ht 165.1 cm; Wt 72.6 kg
[~2024-11-02 16:44] MED LIST changes: -IOHEXOL-350 75 ML VIAL IV ONE; -TAMS-1 PO; +TAMS-55 PO
[2024-11-02 17:10] LABS: BASOPHILS # (AUTO) 0.03 K/uL (0.00-0.20); BASOPHILS % (AUTO) 0.4 % (0.0-5.0); EOSINOPHILS # (AUTO) 0.17 K/uL (0.00-0.70); EOSINOPHILS % (AUTO) 2.4 % (0.0-8.0); HEMATOCRIT 33.1 % (42-54); IMMATURE GRANULOCYTE ABSOLUTE 0.02 K/uL (0-1); LYMPHOCYTES # (AUTO) 1.7 K/uL (1.0-4.8); LYMPHOCYTES % (AUTO) 23.9 % (21.0-51.0); MEAN CORPUSCULAR HEMOGLOBIN 35.3 pg (27.0-33.0); MEAN CORPUSCULAR VOLUME 100.6 fL (79-99); MONOCYTES # (AUTO) 0.5 K/uL (0.1-1.0); MONOCYTES % (AUTO) 7.5 % (3.0-13.0); NEUTROPHILS # (AUTO) 4.7 K/uL (1.8-7.7); NEUTROPHILS % (AUTO) 65.5 % (40.0-77.0); PLATELET COUNT (AUTO) 190 K/uL (130-400); RED BLOOD CELL COUNT(AUTO) 3.29 MIL/uL (4.50-6.20); WHITE BLOOD COUNT (AUTO) 7.2 K/uL (4.8-10.8)
[2024-11-02 17:20] LABS: CREATININE 1.2 mg/dL (0.5-1.3); POTASSIUM 4.1 mmol/L (3.5-5.1)
[2024-11-02] MEDS: 0.9%NACL 1000ML 1,000 ML IV STA (17:37)
--- NOTE | 2024-11-02 17:39 | HMCIMG ---
PORTABLE CHEST RADIOGRAPH INDICATION: HYPOTENSION COMPARISON: None FINDINGS: media monitor leads overlie the field of view. Median sternotomy wires as well as fixation plates and screws are in appropriate alignment. Heart size is normal. The pulmonary vascularity and maycol appear normal. No abnormal pulmonary parenchymal opacity or consolidation identified. No significant pleural effusion noted. No pneumothorax detected. Chronic right midclavicular fracture deformity. Large hiatal hernia. IMPRESSION: Large hiatal hernia without radiographic evidence for any acute cardiopulmonary process.
--- NOTE | 2024-11-02 19:46 | ERN ---
ED Note History of Present Illness Stated Complaint: LOW BP Chief Complaint: Hypotension Time Seen by MD: 17:11 Time Seen by Midlevel: 17:15 Dictation: 74-year-old male brought in by family for near syncopal episode and possibly taking his home medications twice today. As per family blood pressure was in the 80s at home. Allergies: Coded Allergies: No Known Drug Allergies (Unverified Allergy, Unknown, 03/02/19) Home Meds Reported Medications Finasteride (Finasteride) 5 Mg Tablet, 1 TAB PO DAILY 11/03/24 Duloxetine HCl (Duloxetine HCl) 20 Mg Capsule.dr, 1 CAP PO DAILY 11/03/24 Atorvastatin Calcium (Atorvastatin Calcium) 80 Mg Tablet, 1 TAB PO HS 11/03/24 Metoprolol Tartrate (Metoprolol Tartrate) 25 Mg Tablet, 25 MG PO BID, TAB 10/17/23 Pantoprazole Sodium (Pantoprazole Sodium) 20 Mg Tablet.dr, 20 MG PO DAILY, TAB 10/17/23 Tamsulosin HCl (Flomax) 0.4 Mg Cap.er.24h, 0.4 MG PO HS, CAPSULE.DR 10/17/23 Aspirin (Aspirin) 81 Mg Tab.chew, 81 MG PO DAILY, TAB.CHEW 10/17/23 Discontinued Reported Medications Atorvastatin Calcium (Atorvastatin Calcium) 40 Mg Tablet, 40 MG PO DAILY, TAB 10/17/23 Nitroglycerin (Nitroglycerin) 0.4 Mg Tab.subl, 0.4 MG SL AD PRN for CHEST PAIN, TAB.SL 03/01/22 Metoprolol Tartrate (Metoprolol Tartrate) 25 Mg Tablet, 25 MG PO BID, TAB 03/01/22 Atorvastatin Calcium (LIPITOR) 40 Mg Tablet, 40 MG PO DAILY, TAB 03/01/22 Past Medical History Past Medical History: CAD, Diabetes-Type II, High Cholesterol, Hypertension Surgical History: CABG Review of System Dictation Constitutional: Negative for fever,chills, and weight loss Eyes: Negative for injury, pain,redness, and discharge ENT: Negative for injury,pain or swelling Cardiovascular: Negative for chest pain, palpitations, and edema Respiratory: Negative for shortness of breath, cough, and wheezing, Abdomen/GI: Negative for abdominal pain, nausea, vomiting, diarrhea, and constipation Back: Negative for injury and pain : Negative for injury, bleeding and discharge MS/Extremity: Negative for injury and deformity Skin: Negative for rash, and discoloration Neuro: Negative for headache, weakness, numbness, tingling, and seizure Psych: Negative for suicide ideation, homicidal ideation, and hallucinations Review of Systems: was completed Initial Vital Sign VS Vital Signs Date Time Temp Pulse Resp B/P (MAP) Pulse Ox O2 Delivery O2 Flow Rate FiO2 11/02/24 16:46 98.1 75 16 92/46 96 Room Air 0 11/02/24 17:07 21 Physical Exam Dictation General: awake, alert, NAD Head/Face: Normocephalic, atraumatic Eyes: PERRL, EOMI, vision at baseline ENT: oral cavity clear, TMs clear, no signs of infection Neck: Trachea midline, supple, no nuchal rigidity Cardiovascular: RRR, normal S1/S2, No MRGs, no JVD Respiratory: CTAB, no respiratory distress, No rales or wheezes Abdomen: Soft, non-tender, non-distended, normal bowel sounds, no guarding or rebound. Skin: Warm, dry, normal turgor, no rash MS/Extremity: Pulses equal, no cyanosis, neurovascular intact, FROM Neuro: COAx4, GCS 15, strength 5/5, CN 2-12 intact, normal cerebellar exam, normal gait, Psych: Normal behavior, mood, and affect normal Results (Laboratory/Radiology) Laboratory/Radiology Laboratory Tests Test 11/02/24 17:02 11/02/24 21:09 11/02/24 21:36 11/03/24 05:08 White Blood Count 7.2 K/uL (4.8-10.8) Red Blood Count 3.29 MIL/uL (4.50-6.20) L Hemoglobin 11.6 g/dL (14.0-18.0) L Hematocrit 33.1 % (42-54) L Mean Corpuscular Volume 100.6 fL (79-99) H Mean Corpuscular Hemoglobin 35.3 pg (27.0-33.0) H Mean Corpuscular Hemoglobin Concent 35.0 g/dL (32.0-36.0) Red Cell Distribution Width 13.0 % (11.0-15.5) Platelet Count 190 K/uL (130-400) Mean Platelet Volume 9.5 fL (7.5-10.5) Immature Granulocyte % (Auto) 0.3 % (0-1) Neutrophils (%) (Auto) 65.5 % (40.0-77.0) Lymphocytes (%) (Auto) 23.9 % (21.0-51.0) Monocytes (%) (Auto) 7.5 % (3.0-13.0) Eosinophils (%) (Auto) 2.4 % (0.0-8.0) Basophils (%) (Auto) 0.4 % (0.0-5.0) Neutrophils # (Auto) 4.7 K/uL (1.8-7.7) Lymphocytes # (Auto) 1.7 K/uL (1.0-4.8) Monocytes # (Auto) 0.5 K/uL (0.1-1.0) Eosinophils # (Auto) 0.17 K/uL (0.00-0.70) Basophils # (Auto) 0.03 K/uL (0.00-0.20) Absolute Immature Granulocyte (auto 0.02 K/uL (0-1) Nucleated Red Blood Cells 0.0 % (0.0-0.19) Sodium Level 137 mmol/L (136-145) Potassium Level 4.1 mmol/L (3.5-5.1) Chloride Level 100 mmol/L (101-111) L Carbon Dioxide Level 27 mmol/L (21-32) Blood Urea Nitrogen 23 mg/dL (7-18) H Creatinine 1.2 mg/dL (0.5-1.3) Glomerular Filtration Rate Calc 63 mL/min (>90) Random Glucose 102 mg/dL (70-105) Total Calcium 8.7 mg/dL (8.5-10.1) Troponin I High Sensitivity 20 ng/L (4-75) 21 ng/L (4-75) Whole Blood Glucose 166 MG/DL (70-110) H 92 MG/DL (70-110) D-Dimer Quantitative (PE/DVT) 816 ng/mL (0-500) *H Test 11/03/24 05:09 11/03/24 11:22 White Blood Count 5.7 K/uL (4.8-10.8) Red Blood Count 3.29 MIL/uL (4.50-6.20) L Hemoglobin 11.7 g/dL (14.0-18.0) L Hematocrit 33.4 % (42-54) L Mean Corpuscular Volume 101.5 fL (79-99) H Mean Corpuscular Hemoglobin 35.6 pg (27.0-33.0) H Mean Corpuscular Hemoglobin Concent 35.0 g/dL (32.0-36.0) Red Cell Distribution Width 12.8 % (11.0-15.5) Platelet Count 174 K/uL (130-400) Mean Platelet Volume 9.7 fL (7.5-10.5) Immature Granulocyte % (Auto) 0.3 % (0-1) Neutrophils (%) (Auto) 53.4 % (40.0-77.0) Lymphocytes (%) (Auto) 33.3 % (21.0-51.0) Monocytes (%) (Auto) 7.0 % (3.0-13.0) Eosinophils (%) (Auto) 5.7 % (0.0-8.0) Basophils (%) (Auto) 0.3 % (0.0-5.0) Neutrophils # (Auto) 3.1 K/uL (1.8-7.7) Lymphocytes # (Auto) 1.9 K/uL (1.0-4.8) Monocytes # (Auto) 0.4 K/uL (0.1-1.0) Eosinophils # (Auto) 0.33 K/uL (0.00-0.70) Basophils # (Auto) 0.02 K/uL (0.00-0.20) Absolute Immature Granulocyte (auto 0.02 K/uL (0-1) Nucleated Red Blood Cells 0.0 % (0.0-0.19) Prothrombin Time 10.3 SEC (9.6-11.6) Prothromb Time International Ratio 0.97 (0.85-1.15) Sodium Level 138 mmol/L (136-145) Potassium Level 3.6 mmol/L (3.5-5.1) Chloride Level 104 mmol/L (101-111) Carbon Dioxide Level 26 mmol/L (21-32) Blood Urea Nitrogen 15 mg/dL (7-18) Creatinine 0.5 mg/dL (0.5-1.3) Glomerular Filtration Rate Calc 106 mL/min (>90) Random Glucose 92 mg/dL (70-105) Hemoglobin A1c 5.1 % (4.0-6.0) Estimated Average Glucose (eAG) 100 mg/dL (70-126) Total Calcium 8.1 mg/dL (8.5-10.1) L Phosphorus Level 3.8 mg/dL (2.5-4.9) Magnesium Level 1.60 mg/dL (1.80-2.40) L Iron Level 201 mcg/dL (65-175) H Total Iron Binding Capacity 252 mcg/dL (250-450) Percent Iron Saturation 79.7 % (30-44) H Triglycerides Level 33 mg/dL (30-200) Cholesterol Level 121 mg/dL (<200) LDL Cholesterol 35 mg/dL (0-99) HDL Cholesterol 85 mg/dL (29-71) H Vitamin B12 Level 360 pg/mL (193-986) Folic Acid (LAB) 15.70 ng/mL (2-20) Thyroid Stimulating Hormone (TSH) 2.05 uIU/mL (0.36-3.74) Whole Blood Glucose 154 MG/DL (70-110) #H Bedside Glucose Comment Notified Nurse Labs Reviewed?: Yes EKG Comment: EKGs done at 5:11 p.m., sinus rhythm with a rate of 62. Multiple ventricular premature complexes. Borderline prolonged WA interval. Nonspecific IVCD with LAD. No STEMI interpreted by ER MD. X-RAY Comment: [place] [id number] [address] IMAGING REPORT Signed PATIENT: BELKIS KRISHNAN MR#: [id number] : 1950 SEX: M AGE: 74 LOCATION: [facility] ORDER 57 STATUS: REG ER REPORT#: [id number] SERVICE 55 REASON: HYPOTENSION ORDERING PHYSICIAN: MANN GARCIA DO PROCEDURE: CXR1VW - CHEST 1VW PORTABLE CHEST RADIOGRAPH INDICATION: HYPOTENSION COMPARISON: None FINDINGS: urban designer leads overlie the field of view. Median sternotomy wires as well as fixation plates and screws are in appropriate alignment. Heart size is normal. The pulmonary vascularity and maycol appear normal. No abnormal pulmonary parenchymal opacity or consolidation identified. No significant pleural effusion noted. No pneumothorax detected. Chronic right midclavicular fracture deformity. Large hiatal hernia. IMPRESSION: Large hiatal hernia without radiographic evidence for any acute cardiopulmonary process. DICTATED BY: ROSELINE ÁLVAREZ MD DATE: 11/02/241735 ELECTRONICALLY SIGNED BY: ROSELINE ÁLVAREZ MD DATE: 11/02/241738 ED Course ED Course Orders Procedure Category Date Status Time Cbc With Differential LAB 11/02/24 Complete 16:56 Basic Metabolic Panel LAB 11/02/24 Complete 16:56 Troponin I High LAB 11/02/24 Complete Sensitivity 16:56 12 Lead Ekg Tracing- EKG 11/02/24 Resulted Technical 16:56 Chest 1vw RAD 11/02/24 Resulted 16:56 0.9%Nacl 1000ml (Ns PHA 11/02/24 Complete 1000ml) 17:21 Ct Head/Brain W/O CT 11/02/24 Resulted Contrast 19:41 Ct Abdomen/Pelvis W/O CT 11/02/24 Resulted Contrast 19:41 Us Carotid Duplex US 11/02/24 Resulted 19:41 Admit Orders ADM 11/02/24 Transmitted 19:46 Orthostatic Vital CPOE 11/02/24 Transmitted Signs 20:32 Thyroid Stimulating LAB 11/03/24 Complete Hormone 04:00 Lipid Panel LAB 11/03/24 Complete 04:00 Hemoglobin A1c LAB 11/03/24 Complete 04:00 Echo 2-D Complete ECHO 11/03/24 Resulted 06:00 Initiate DB 11/02/24 Complete Hyperglycemia Protoco 20:32 Insulin Regular, PHA 11/02/24 Complete Human 3ml (Humulin R 21:00 Initiate Hypoglycemia DB 11/02/24 Complete Protocol 20:32 Dextrose 50%-Water PHA 11/02/24 Complete (D50w) 21:00 Glucagon 1mg Kit PHA 11/02/24 Complete (Glucagon 1mg Kit) 21:00 Vital Signs Every 4 CPOE 11/02/24 Transmitted Hours 20:32 Daily Weights CPOE 11/02/24 Transmitted 20:32 I&O Q Shift CPOE 11/02/24 Transmitted 20:32 Activity: Bed Rest CPOE 11/02/24 Transmitted 20:32 Cbc With Differential LAB 11/03/24 Complete 04:00 Basic Metabolic Panel LAB 11/03/24 Complete 04:00 Magnesium LAB 11/03/24 Complete 04:00 Phosphorus LAB 11/03/24 Complete 04:00 Iron Panel With %Sat LAB 11/03/24 Complete 04:00 Prothrombin Time With LAB 11/03/24 Complete INR 04:00 Lactated Ringers PHA 11/02/24 Complete 1000ml (Lactated 21:00 Pantoprazole 40mg Tab PHA 11/03/24 Complete (Protonix 40mg Tab 09:00 Acetaminophen 325 Tab PHA 11/02/24 Complete (Tylenol 325mg Tab 21:00 Lactulose 20 Gm/30 Ml PHA 11/02/24 Complete Udcup (Constulose 21:00 Ondansetron 4mg Inj PHA 11/02/24 Complete (Zofran 4mg Inj) 21:00 Apply Scds CPOE 11/02/24 Transmitted 20:32 Turn Patient Q2hrs CPOE 11/02/24 Transmitted 20:32 Elevate Hob At 30 CPOE 11/02/24 Transmitted Degrees 20:32 Admit Orders ADM 11/02/24 Transmitted 20:32 Condition: CPOE 11/02/24 Transmitted 20:32 Telemetry Monitoring CPOE 11/02/24 Transmitted 20:32 12 Lead Ekg Tracing- EKG 11/02/24 Resulted Technical 21:22 Troponin I High LAB 11/02/24 Complete Sensitivity 21:22 D-Dimer LAB 11/02/24 Complete 21:22 Us Arterial Bilat Low US 11/02/24 Resulted Ext Dupl 21:22 12 Lead Ekg Tracing- EKG 11/02/24 Resulted Technical 21:35 Use The [place]-Ar CPOE 11/02/24 Transmitted Assmt. Tool 23:33 Nicotine 7mg Patch PHA 11/03/24 Complete (Nicoderm) 00:00 Us Venous Doppler US 11/02/24 Resulted Bilateral 23:39 Ct Chest Pe Protocol CT 11/02/24 Resulted Wwo Cont 23:39 Iohexol (Omnipaque) PHA 11/02/24 Complete 23:56 Vte High Risk NOTIF 11/03/24 Transmitted Notification 01:02 Smoking Cessation DB 11/03/24 Complete 02:31 Notf Respiratory Comm NOTIF 11/03/24 Transmitted 02:31 Heart Healthy Diet DIET 11/03/24 Complete Breakfast Vitamin B12 Serum LAB 11/03/24 Complete 05:39 Folic Acid Serum LAB 11/03/24 Complete 05:39 *General Dc DS 11/03/24 Transmitted Instructions 14:17 Vital Signs Date Time Temp Pulse Resp B/P (MAP) Pulse Ox O2 Delivery O2 Flow Rate FiO2 11/03/24 12:00 97.9 96 19 149/76 99 Room Air 21 11/03/24 08:00 97.9 73 19 149/79 95 Room Air 11/03/24 07:49 96 Room Air* 0 11/03/24 04:25 98.1 78 18 143/80 96 Room Air 11/03/24 00:42 97.9 71 18 129/66 97 Room Air 143/75 140/78 11/02/24 23:25 97 Room Air* 0 11/02/24 22:15 70 19 134/63 97 Room Air* 0 11/02/24 19:48 98.4 69 17 124/53 98 Room Air* 0 11/02/24 18:12 84 20 105/60 98 Room Air* 0 11/02/24 17:57 98.1 63 18 113/56 100 Room Air* 0 11/02/24 17:07 66 12 95/47 98 Room Air* 0 11/02/24 16:46 98.1 75 16 92/46 96 Room Air 0 HEART Score Response (Comments) Value History: Moderate suspicion (+1) 1 EKG: Normal 0 Age: > 65yrs (+2) 2 Risk Factors: 3+ risk factors (+2) 2 Initial Troponin: Normal limit (0) 0 Total 5 Medical Decision Making MDM MDM: CBC shows no leukocytosis, microcytic anemia, no thrombocytopenia. Chemistry unremarkable. As normal creatinine. Troponin negative. EKGs did not show any ST elevations. Heart score is five. Patient will be admitted for observation for hypotension. Spoke to indy Amaya for benchmark. Recommended ordering a ultrasound of the carotid, CT of the abdomen and pelvis due to the hiatal hernia shown in the chest x-ray and a head CT. Differential diagnosis: Accidental overdose, bradycardia, dehydration, Rationale: Tests considered and ordered secondary to shared decision making include: labs, ECG and radiology Previous outside records reviewed: Old ER visits. Risk of complication and/or morbidity or mortality of patient management: None Medications-Per medication reconciliation Need for hospitalization: Patient does meet criteria for hospitalization. Need for emergency major/minor surgery: No There are no social concerns with this patient. Prescription drug management Prescriptions will include symptomatic care Patient's prior external medical records from other ER visits were reviewed by me as indicated. Prior testing and results from previous visits were reviewed. Prior tests were taken into account with medical decision making and resource utilization, independent historian/historians were used to obtain complete medical history. I independently interpreted the test that were performed, results were reviewed by me and considered findings on radiology if ordered. Medical management and examination interpretation discussions were had by me with other qualified healthcare professionals as indicated for the patient's care. DX & DISP Disposition: Inpatient Departure Impression: Primary Impression: Hypotension Critical Time: 30 minutes (Critical Care Procedure NoteAuthorized and Performed by: meTotal critical care time: Approximately 36 minutesDue to a high probability of clinically significant, life threatening deterioration, the patient required my highest level of preparedness to intervene emergently and I personally spent this critical care time directly and personally managing the patient. This critical care time included obtaining a history; examining the patient; pulse oximetry; ordering and review of studies; arranging urgent treatment with development of a management plan; evaluation of patient's response to treatment; frequent reassessment; and, discussions with other providers.This critical care time was performed to assess and manage the high probability of imminent, life-threatening deterioration that could result in multi-organ failure. It was exclusive of separately billable procedures and treating other patients and teaching time.Please see MDM section and the rest of the note for further information on patient assessment and treatment.) Condition: Stable Referrals: ZULEIMA CABRERA MD (PCP) Time of Disposition: 19:46 I have reviewed the case, and I agree with, Diagnosis and Plan I performed a substantive portion of the visit. I have reviewed and personally made and approve the management plan that is documented in the notes by myself with [place]/resident. I acknowledged full responsibility for the patient's management plan. TRA MARTIN NP Nov 02, 2024 19:46 MANN GARCIA DO Nov 05, 2024 04:28
--- NOTE | 2024-11-02 20:24 | HMCIMG ---
ULTRASOUND THE CAROTID ARTERIES INDICATION: Dizziness TECHNIQUE: Interrogation of the right and left common, internal, and external carotid systems were performed using grayscale, color, and spectral Doppler. COMPARISON: None FINDINGS: (CM/SEC) RIGHT CCA: 69 ICA: 67 ECA: 124 ICA/CCA ratio: 0.9 LEFT CCA: 77 ICA: 67 ECA: 121 ICA/CCA ratio: 0.9 VERTEBRAL ARTERIES: Antegrade flow bilaterally. Normal Color Doppler flow completely fills the lumen of all major vessels, except for mild calcific plaque along both common carotid arterial thomas, both common carotid arterial bulb thomas, and both proximal internal carotid arterial thomas. Normal high resistance flow pattern is present throughout all major vessels on Spectral Doppler analysis. IMPRESSION: No evidence for high-grade flow-rate limiting stenosis. Parameters as reported.
--- NOTE | 2024-11-02 20:37 | HP ---
[facility] HISTORY & PHYSICAL Date Patient Seen: Nov 02, 2024 Time of Visit: 2099 Supervising Physician: [Dr. Francisco Betancourt] Primary Care Physician: [Dr. Hanson ] Outpatient Specialists: [Dr. Mead-cardiology ] Inpatient Consults: [ ] PROBLEM LIST: Fbdo-nbrwcyp-KQT Large hiatal hernia-POA Medication error tngd-xjcnldawiktwkn-SMU Atypical chest pain-POA Paroxysmal afib/evpflksb-uof-lqlzg and transient: POA Macrocytic anemia-POA PVD Chronic nicotine disorder: smokes less than half-a-pack a day for more than 50 years Chronic ETOH disorder: drinks about 6-pack of beer a day CAD s/p CABG Primary HTN HLD Chronic hernia PLAN: -Admit to medr telemetry -Pending head CT, abdominal CT and carotid US -Obtain arterial doppler of the BLE -Orthostatic BP q shift -Monitor troponin and D-dimer, if significant we'll continue work-up to rule--out P.E. and DVT -ACS risk stratification -Obtain 2decho in am -Manage abdominal pain PRN -Smoking cessation education for more than 5 minutes -Nicotine patch -Activate CIWA protocol as warranted -Obtain iron studies, B12 and folate HPI: [Patient is a 74-year-old male with PMH significant for CAD s/p CABG and stent, PVD, HTN, HLD, chronic nicotine disorder and daily ETOH dependence who has presented tot he ED accompanied by his daughter concerning acute onset dizziness and near-syncope. Patient claims that he was in his usual state of health and was at a second-hand store when he suddenly felt the symptoms and decided to go back to the car when he felt he was going to faint, his daughter caught him and sat him down inside the car. Apparently, the patient took more than his usual dose of Metoprolol and Lisinopril. ED work-up was unremarkable except for large hiatal hernia without complaint of abdominal pain. Physical assessment was unrevealing without focal neurologic deficits. Goals of care were discussed with the patient verbalizing understanding and agreement. While in the ED, as I was talking to him, he claims he was experiencing chest pain, central on the chest without radiation or migration with shortness of breath. EKG was done that showed controlled rate of afib and aflutter which he claims he never had any history of. A repeat was done after few minutes and it came back to NSR. On cardiac telemetry it was sustaining NSR rate of 60-70. PAST MEDICAL HX: see above PAST SURGICAL HX: noncontributory SOCIAL HISTORY: No tobacco, ETOH, or illicit drug use Coded Allergies: No Known Drug Allergies (Unverified Allergy, Unknown, 03/02/19) REVIEW OF SYSTEMS: 12 point ROS reviewed with patient. Pertinent positives mentioned above. Otherwise negative. PHYSICAL EXAM: GENERAL: alert, weak, awake oriented x 3 HEENT: EOMI, Sclera non icteric, moist mucosa NECK: Supple, no JVD, trachea midline LUNGS: Clear breath sounds bilaterally. No wheezes HEART: Regular rate and rhythm. Normal S1 and S2, without murmurs ABD: Abdomen soft, nontender. Bowel sounds present EXT: No clubbing cyanosis or edema NEURO: Alert and oriented to person, follows commands Vital Signs (last 8hr) Date Time Temp Pulse Resp B/P (MAP) Pulse Ox O2 Delivery O2 Flow Rate FiO2 11/02/24 19:48 98.4 69 17 124/53 98 Room Air* 0 21 11/02/24 18:12 84 20 105/60 98 Room Air* 0 21 11/02/24 17:57 98.1 63 18 113/56 100 Room Air* 0 21 11/02/24 17:07 66 12 95/47 98 Room Air* 0 21 11/02/24 16:46 98.1 75 16 92/46 96 Room Air 0 LABS: Hematology Labs: Test 11/02/24 17:02 Range/Units White Blood Count 7.2 4.8-10.8 K/uL Red Blood Count 3.29 L 4.50-6.20 MIL/uL Hemoglobin 11.6 L 14.0-18.0 g/dL Hematocrit 33.1 L 42-54 % Mean Corpuscular Volume 100.6 H 79-99 fL Mean Corpuscular Hemoglobin 35.3 H 27.0-33.0 pg Mean Corpuscular Hemoglobin Concent 35.0 32.0-36.0 g/dL Red Cell Distribution Width 13.0 11.0-15.5 % Platelet Count 190 130-400 K/uL Mean Platelet Volume 9.5 7.5-10.5 fL Immature Granulocyte % (Auto) 0.3 0-1 % Neutrophils (%) (Auto) 65.5 40.0-77.0 % Lymphocytes (%) (Auto) 23.9 21.0-51.0 % Monocytes (%) (Auto) 7.5 3.0-13.0 % Eosinophils (%) (Auto) 2.4 0.0-8.0 % Basophils (%) (Auto) 0.4 0.0-5.0 % Neutrophils # (Auto) 4.7 1.8-7.7 K/uL Lymphocytes # (Auto) 1.7 1.0-4.8 K/uL Monocytes # (Auto) 0.5 0.1-1.0 K/uL Eosinophils # (Auto) 0.17 0.00-0.70 K/uL Basophils # (Auto) 0.03 0.00-0.20 K/uL Absolute Immature Granulocyte (auto 0.02 0-1 K/uL Nucleated Red Blood Cells 0.0 0.0-0.19 % Chemistry Labs: Test 11/02/24 17:02 Range/Units Sodium Level 137 136-145 mmol/L Potassium Level 4.1 3.5-5.1 mmol/L Chloride Level 100 L 101-111 mmol/L Carbon Dioxide Level 27 21-32 mmol/L Blood Urea Nitrogen 23 H 7-18 mg/dL Creatinine 1.2 0.5-1.3 mg/dL Glomerular Filtration Rate Calc 63 >90 mL/min Random Glucose 102 70-105 mg/dL Total Calcium 8.7 8.5-10.1 mg/dL Troponin I High Sensitivity 20 4-75 ng/L DIAGNOSTICS / RADIOLOGY RESULTS: [ ] PLAN NEURO: Minimize central acting medications as possible. Maintain fall precautions, adequate lighting during the day PULMONARY: Supplemental 02 as needed. Maintain aspiration precautions at all times CARDIOVASCULAR: Follow hemodynamics. Vital signs per facility protocol GI & NUTRITION: Continue with nutritional support. Continue stool softeners and laxatives as needed. KIDNEYS & ELECTROLYTES: Strict monitoring of intake, output and overall fluid balance. Avoid nephrotoxic medications to the extent possible. Medications to be dosed according to renal function. Monitor electrolytes and replace as needed ENDOCRINE: Maintain blood glucose between 100-180 at all times. Hypoglycemia protocol in place INFECTIOUS DISEASE: Trend temperature, WBC and procalcitonin level Follow cultures, deescalate antibiotics as soon as possible. Panculture if new onset fever ONCOLOGY/HEMATOLOGY/COAGULATION: Monitor for s/s of bleeding Monitor hemoglobin, coagulation studies as needed SKIN: Pressure ulcer prevention per facility protocol Specialty mattress ORTHO/REHAB: Continue PT/OT Prophylaxis: Continue GI and DVT prophylaxis Code Status: Full Resuscitation Disposition: TBD Other: Total patient care time: 35 minutes TAMIKO HICKEY Nov 02, 2024 20:37
[2024-11-02] MEDS ORDERED: GLUCAGON 1MG KIT 1 MG ML IM PRN (21:00)
[2024-11-02] MEDS ORDERED: LACTULOSE 20 GM/30 ML UDCUP PO PRN (21:00)
[2024-11-02] MEDS: INSULIN humuLIN R 100 UNIT/ML 3ML SQ SCH (21:00)
[2024-11-02] MEDS ORDERED: DEXTROSE 50%-WATER 50 ML DISP.SYRIN IV PRN (21:00)
[2024-11-02] MEDS ORDERED: acetaMINOPHEN 325 MG TAB PO PRN (21:00)
[2024-11-02] MEDS ORDERED: ondanSETRON 4MG INJ IVP PRN (21:00)
[2024-11-02] MEDS: LACTATED RINGERS 1000ML 1,000 ML IV SCH (21:03)
--- NOTE | 2024-11-02 21:14 | HMCIMG ---
CT HEAD WITHOUT CONTRAST INDICATION: Near syncope TECHNIQUE: Noncontrast axial helical CT images from the vertex through the skull base using 5 mm slice thickness without contrast material. Coronal and sagittal reconstructions were also included. Dose reduction techniques was used using integrated, automated and adaptive dose reduction exposure control. CT was performed with one or more of the following dose reduction techniques: Automated exposure control, adjustment of the mA and/or kV according to patient size, or use of iterative reconstruction technique. COMPARISON: None FINDINGS: Scattered and coalescent subcortical and periventricular white matter low attenuating areas likely represent residual of chronic small vessel arteriopathy and/or remote vascular insult. Generalized mild cerebral cortical atrophy is present.. No evidence for abnormal extra-axial fluid collections or masses. The ventricles and sulci are normal in size and configuration. No evidence for intracranial parenchymal, epidural, or subdural hemorrhage, mass effect or midline shift. The pedroza-white matter differentiation is well preserved. No secondary evidence to suggest acute ischemia. Mild calcific plaque is present along the thomas of the cavernous segments of both internal carotid arteries. The brainstem and cerebellum appear normal. The visualized orbits appear unremarkable. Moderate bilateral ethmoid and mild bilateral sphenoid sinus mucosal thickening. Remainder of the visible paranasal sinuses and mastoid air cells are clear. The calvarium appears normal. IMPRESSION: Chronic white matter ischemic changes, mild brain atrophy, and arteriosclerotic disease as described, without acute component.
--- NOTE | 2024-11-02 21:18 | HMCIMG ---
CT ABDOMEN WITHOUT CONTRAST. CT PELVIS WITHOUT CONTRAST. INDICATION: Near syncope TECHNIQUE: Routine transaxial imaging using 5 mm slice thickness through the abdomen and pelvis without the administration of IV contrast. Thin slice reconstructions are also provided. Coronal and sagittal reformatted images acquired for interpretation. CT was performed with one or more of the following dose reduction techniques: Automated exposure control, adjustment of the mA and/or kV according to patient size, or use of iterative reconstruction technique. COMPARISON: None FINDINGS: ON NONCONTRAST IMAGING: ABDOMEN: Heart size is normal. Visible lung bases are clear. Large hiatal hernia. A couple of 2 mm nonobstructing calculi at the midportion of the right kidney. A couple of 2 mm nonobstructing calculi at the lower pole of the left kidney. 3.7 cm simple cyst at the midportion of the left kidney. The liver is normal in size and smooth in contour without biliary duct dilation. The spleen is normal in size and attenuation. A few miniscule calcific gallbladder neck stones. The pancreas appears normal without pancreatic duct dilation. The adrenal glands appear normal. No significant abdominal, retrocrural or retroperitoneal adenopathy noted. No evidence for intra-abdominal free air or organized fluid collection. Mild calcific plaque is noted along the abdominal aortic and iliac vessel thomas without aneurysmal dilation. PELVIS: No abnormal calcifications within the urinary bladder or distal ureters. No evidence for free air or organized pelvic fluid collection. No significant pelvic adenopathy detected. Visualized small and large bowel loops appear unremarkable. Terminal ileum appears unremarkable. The appendix appears normal. Visible osseous structures are intact. IMPRESSION: Nonobstructing bilateral nephrolithiasis. Mild cholelithiasis. Large hiatal hernia.
--- NOTE | 2024-11-02 21:35 | EKG ---
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 : 1950 Requested By: MANN GARCIA Order Number: [id number] Reading MD: Eve Schaefer Measurements Intervals [place] Rate: 67 P: 80 MA: 184 QRS: 110 QRSD: 102 T: 68 QT: 432 QTc: 456 Interpretive Statements Normal sinus rhythm Right axis deviation Septal infarct , age undetermined Compared to ECG 10/18/2023 15:07:10 Right-axis deviation now present Sinus tachycardia no longer present Fusion complex(es) no longer present Ventricular premature complex(es) no longer present Left-axis deviation no longer present Myocardial infarct finding still present Electronically Signed On 11-03-2024 13:22:52 CDT by Eve Schaefer Please click the below link to view image of tracing.
--- NOTE | 2024-11-02 21:59 | HMCIMG ---
ULTRASOUND ARTERIAL DUPLEX LOWER EXTREMITY, BILATERAL INDICATION: PVD TECHNIQUE: Routine grayscale, color Doppler, and power Doppler ultrasound of the bilateral lower extremity arteries were obtained. COMPARISON: None FINDINGS: Velocities in cm/sec. RIGHT: MEDICAL HISTORIAN: 139 SFA: Prox 114, Mid 134, Distal 106 Popliteal: 73 proximally and 93 distally Anterior Tibial: 77 distally Posterior Tibial: 83 Dorsalis Pedis: 86 LEFT: MEDICAL HISTORIAN: 184 SFA: Prox 130, Mid 145, Distal 138 Popliteal: 93 proximally and 72 distally Anterior Tibial: 86 distally Posterior Tibial: 101 Dorsalis Pedis: 94 Triphasic flow along both lower extremity arterial systems except for monophasic flow along the bilateral posterior tibial arteries. Mild calcific plaque along both lower extremity arterial system thomas. IMPRESSION: Monophasic flow along the bilateral posterior tibial arteries without evidence for high-grade flow-rate limiting stenosis or occlusion. Parameters as reported.
[2024-11-02 23:25] VITALS: O2SAT 97
--- NOTE | 2024-11-02 23:25 | NUR ---
ADMIT PT ADMITTED TO ROOM 316 AAOX4. DENIES OF ANY PAINS NOR DISCOMFORTS AT THIS TIME. NO DISTRESS NOTED. ADMISSION CARE DONE. ADMISSION ASSESSMENT DONE. PCP IN AND ADMISSION V/S MONITORED, STABLE. PLACED IN BED COMFORTABLY WITH HOB ELEVATED. CONTINUED IVF OF LR FROM ER REGULATED AT 100CC/HR. SCD'S APPLIED TO BLE. UPDATED HOME MEDS IN THE COMPUTER. ORIENTED TO ROOM AND UNIT. IN FOR MORE CARE AND MANAGEMENT. Addendum: 11/03/24 at 0102 by VLADIMIR ALEGRIA RN RN Amended: Links added.
--- NOTE | 2024-11-02 23:50 | NUR ---
CONSENT NEW ORDERS FOR CT CHEST PE PROTOCOL RECEIVED. PT MADE AWARE OF TEST. CONSENT FOR RADIOLOGY SIGNED BY PT AND WITNESSED BY [place] WORKER. FUR PLUCKER FROM RADIOLOGY CALLED TO SEE IF PT IS READY. ANNETTA DORSEY CALLED TO HELP TRANSPORT PT DOWN TO CT.
[2024-11-02] MEDS ORDERED: IOHEXOL 350 MG/ML 100ML INFUS..BTL IV ONE (23:56)
[2024-11-03] MEDS: NICOTINE 7 MG/ 24 HR PATCH TD SCH (00:12)
--- NOTE | 2024-11-03 00:12 | NUR ---
BACK PT IS BACK FROM CT. PLACED BACK COMFORTABLY IN BED. PLACED BACK ON SCD'S TO BLE AND IVF OF LR. TELE MONITOR PLACED, SR WITH PVC'S HR=60. KEPT WARM AND DRY. CALL LIGHT WITHIN REACH. ENCOURAGED TO REST AND SLEEP.
--- NOTE | 2024-11-03 00:19 | HMCIMG ---
CT CHEST PE PROTOCOL WWO CONT HISTORY: Pulmonary embolism COMPARISON: None TECHNIQUE: CT angiography of the chest was performed. The study was performed using angiographic technique with maximum intensity projection reconstruction images. Patient was given 100 cc of Omnipaque through intravenous route. FINDINGS: No CT evidence of filling defect is seen to suggest pulmonary embolus. No CT evidence of aortic dissection is seen. No evidence of parenchymal disease is seen. No CT evidence of pleural effusion or pericardial effusion is seen. The heart is enlarged. There is hiatal hernia. No evidence of adrenal mass is seen. Degenerative changes of the spine are noted. There is left renal cyst measuring 4.5 cm. IMPRESSION: 1. No CT evidence of acute pulmonary embolus is seen. Abdomen CT was performed with one or more following dose reduction techniques: automated exposure control, adjustment of the mA and kv according to patient's size, or use of a iterative reconstruction technique.
[2024-11-03 00:42] VITALS: BP_SYST 129; BP_SYST 140; BP_SYST 143; BP_DIAS 66; BP_DIAS 75; BP_DIAS 78; PULSE 71; RESP 18; TEMP 97.8
--- NOTE | 2024-11-03 01:09 | NUR ---
[facility] ACCOUNT SPECIALIST IN ROOM TO DO BLE VENOUS DOPPLER.
[2024-11-03] MEDS ORDERED: FINA5TAB41 PO (02:08)
[2024-11-03] MEDS ORDERED: ATOR-2 PO (02:08)
[2024-11-03] MEDS ORDERED: DULO20CA18 PO (02:08)
[2024-11-03 04:25] VITALS: BP 143/80; PULSE 78; RESP 18; TEMP 98.1
[2024-11-03 05:22] LABS: BASOPHILS # (AUTO) 0.02 K/uL (0.00-0.20); BASOPHILS % (AUTO) 0.3 % (0.0-5.0); EOSINOPHILS # (AUTO) 0.33 K/uL (0.00-0.70); EOSINOPHILS % (AUTO) 5.7 % (0.0-8.0); HEMATOCRIT 33.4 % (42-54); IMMATURE GRANULOCYTE ABSOLUTE 0.02 K/uL (0-1); LYMPHOCYTES # (AUTO) 1.9 K/uL (1.0-4.8); LYMPHOCYTES % (AUTO) 33.3 % (21.0-51.0); MEAN CORPUSCULAR HEMOGLOBIN 35.6 pg (27.0-33.0); MEAN CORPUSCULAR VOLUME 101.5 fL (79-99); MONOCYTES # (AUTO) 0.4 K/uL (0.1-1.0); NEUTROPHILS # (AUTO) 3.1 K/uL (1.8-7.7); NEUTROPHILS % (AUTO) 53.4 % (40.0-77.0); PLATELET COUNT (AUTO) 174 K/uL (130-400); RED BLOOD CELL COUNT(AUTO) 3.29 MIL/uL (4.50-6.20); RED CELL DISTRIBUTION WIDTH 12.8 % (11.0-15.5); WHITE BLOOD COUNT (AUTO) 5.7 K/uL (4.8-10.8)
[2024-11-03 05:26] LABS: HEMOGLOBIN A1C 5.1 % (4.0-6.0)
[2024-11-03 05:30] LABS: INR 0.97 (0.85-1.15); PROTHROMBIN TIME 10.3 SEC (9.6-11.6)
[2024-11-03 05:39] LABS: % IRON SATURATION 79.7 % (30-44)
[2024-11-03 05:40] LABS: CREATININE 0.5 mg/dL (0.5-1.3); MAGNESIUM 1.6 mg/dL (1.80-2.40); PHOSPHORUS 3.8 mg/dL (2.5-4.9); POTASSIUM 3.6 mmol/L (3.5-5.1); THYROID STIMULATING HORMONE 2.05 uIU/mL (0.36-3.74)
--- NOTE | 2024-11-03 05:50 | NUR ---
ROUNDS PT SLEPT AT INTERVALS AFTER BEING ADMITTED. NO DISTRESS NOTED. NO CONCERNS VERBALIZED. KEPT RESTED AND COMFORTABLE IN BED. CALL LIGHT WITHIN REACH. FOR MORE CARE.
[2024-11-03 07:49] VITALS: O2SAT 96
[2024-11-03 08:00] VITALS: BP 149/79; PULSE 73; RESP 19; TEMP 97.9
[2024-11-03] MEDS: PANTOPrazole 40 MG TAB DR PO SCH (08:22)
--- NOTE | 2024-11-03 08:47 | HMCIMG ---
Exam Type: US VENOUS DOPPLER BILATERAL Clinical Information: R/O DVT Comparison: None Findings: The examination shows normal deep venous system. There is normal compressibility at all levels. There is no intraluminal clot. There is no occlusion. Adequate response is obtained on augmentation. Impression: No evidence of DVT.
--- NOTE | 2024-11-03 09:34 | PN ---
[facility] PROGRESS NOTE Date Patient Seen: Nov 03, 2024 Time of Visit: 09:34 Supervising Physician: [ ] Primary Care Physician: [Dr. Hanson ] Outpatient Specialists: [Dr. Mead-cardiology ] Inpatient Consults: [ ] PROBLEM LIST: Zntl-zqalfdw-KIK Large hiatal hernia-POA Medication error aeoe-vsiyljdbfplmmm-CUR Atypical chest pain-POA Paroxysmal afib/wjnlrscf-jkc-lyliw and transient: POA Macrocytic anemia-POA PVD Chronic nicotine disorder: smokes less than half-a-pack a day for more than 50 years Chronic ETOH disorder: drinks about 6-pack of beer a day CAD s/p CABG Primary HTN HLD Chronic hernia PLAN: -Admit to medsur telemetry -Pending head CT, abdominal CT and carotid US -Obtain arterial doppler of the BLE -Orthostatic BP q shift -Monitor troponin and D-dimer, if significant we'll continue work-up to rule--out P.E. and DVT -ACS risk stratification -Obtain 2decho in am -Manage abdominal pain PRN -Smoking cessation education for more than 5 minutes -Nicotine patch -Activate CIWA protocol as warranted -Obtain iron studies, B12 and folate INTERVAL HISTORY: [ ] REVIEW OF SYSTEMS: 12 point ROS reviewed with patient. Pertinent positives mentioned above. Otherwise negative. PHYSICAL EXAM: GENERAL: alert, weak, awake oriented x 3 HEENT: EOMI, Sclera non icteric, moist mucosa NECK: Supple, no JVD, trachea midline LUNGS: Clear breath sounds bilaterally. No wheezes HEART: Regular rate and rhythm. Normal S1 and S2, without murmurs ABD: Abdomen soft, nontender. Bowel sounds present EXT: No clubbing cyanosis or edema NEURO: Alert and oriented to person, follows commands Vital Signs (last 8hr) Date Time Temp Pulse Resp B/P (MAP) Pulse Ox O2 Delivery O2 Flow Rate FiO2 11/03/24 08:00 97.9 73 19 149/79 95 Room Air 21 11/03/24 07:49 96 Room Air* 0 11/03/24 04:25 98.1 78 18 143/80 96 Room Air LABS: Hematology Labs: Test 11/03/24 05:09 Range/Units White Blood Count 5.7 4.8-10.8 K/uL Red Blood Count 3.29 L 4.50-6.20 MIL/uL Hemoglobin 11.7 L 14.0-18.0 g/dL Hematocrit 33.4 L 42-54 % Mean Corpuscular Volume 101.5 H 79-99 fL Mean Corpuscular Hemoglobin 35.6 H 27.0-33.0 pg Mean Corpuscular Hemoglobin Concent 35.0 32.0-36.0 g/dL Red Cell Distribution Width 12.8 11.0-15.5 % Platelet Count 174 130-400 K/uL Mean Platelet Volume 9.7 7.5-10.5 fL Immature Granulocyte % (Auto) 0.3 0-1 % Neutrophils (%) (Auto) 53.4 40.0-77.0 % Lymphocytes (%) (Auto) 33.3 21.0-51.0 % Monocytes (%) (Auto) 7.0 3.0-13.0 % Eosinophils (%) (Auto) 5.7 0.0-8.0 % Basophils (%) (Auto) 0.3 0.0-5.0 % Neutrophils # (Auto) 3.1 1.8-7.7 K/uL Lymphocytes # (Auto) 1.9 1.0-4.8 K/uL Monocytes # (Auto) 0.4 0.1-1.0 K/uL Eosinophils # (Auto) 0.33 0.00-0.70 K/uL Basophils # (Auto) 0.02 0.00-0.20 K/uL Absolute Immature Granulocyte (auto 0.02 0-1 K/uL Nucleated Red Blood Cells 0.0 0.0-0.19 % Chemistry Labs: Test 11/03/24 05:09 11/03/24 05:08 11/02/24 21:36 Range/Units Sodium Level 138 136-145 mmol/L Potassium Level 3.6 3.5-5.1 mmol/L Chloride Level 104 101-111 mmol/L Carbon Dioxide Level 26 21-32 mmol/L Blood Urea Nitrogen 15 7-18 mg/dL Creatinine 0.5 0.5-1.3 mg/dL Glomerular Filtration Rate Calc 106 >90 mL/min Random Glucose 92 70-105 mg/dL Hemoglobin A1c 5.1 4.0-6.0 % Estimated Average Glucose (eAG) 100 70-126 mg/dL Total Calcium 8.1 L 8.5-10.1 mg/dL Phosphorus Level 3.8 2.5-4.9 mg/dL Magnesium Level 1.60 L 1.80-2.40 mg/dL Iron Level 201 H 65-175 mcg/dL Total Iron Binding Capacity 252 250-450 mcg/dL Percent Iron Saturation 79.7 H 30-44 % Triglycerides Level 33 30-200 mg/dL Cholesterol Level 121 <200 mg/dL LDL Cholesterol 35 0-99 mg/dL HDL Cholesterol 85 H 29-71 mg/dL Vitamin B12 Level 360 193-986 pg/mL Folic Acid (LAB) 15.70 2-20 ng/mL Thyroid Stimulating Hormone (TSH) 2.05 0.36-3.74 uIU/mL Whole Blood Glucose 92 70-110 MG/DL Troponin I High Sensitivity 21 4-75 ng/L Coagulation Labs: Test 11/03/24 05:09 11/02/24 21:36 Range/Units Prothrombin Time 10.3 9.6-11.6 SEC Prothromb Time International Ratio 0.97 0.85-1.15 D-Dimer Quantitative (PE/DVT) 816 *H 0-500 ng/mL DIAGNOSTICS / RADIOLOGY RESULTS: [ ] PLAN NEURO: Minimize central acting medications as possible. Maintain fall precautions, adequate lighting during the day PULMONARY: Supplemental 02 as needed. Maintain aspiration precautions at all times CARDIOVASCULAR: Follow hemodynamics. Vital signs per facility protocol GI & NUTRITION: Continue with nutritional support. Continue stool softeners and laxatives as needed. KIDNEYS & ELECTROLYTES: Strict monitoring of intake, output and overall fluid balance. Avoid nephrotoxic medications to the extent possible. Medications to be dosed according to renal function. Monitor electrolytes and replace as needed ENDOCRINE: Maintain blood glucose between 100-180 at all times. Hypoglycemia protocol in place INFECTIOUS DISEASE: Trend temperature, WBC and procalcitonin level Follow cultures, deescalate antibiotics as soon as possible. Panculture if new onset fever ONCOLOGY/HEMATOLOGY/COAGULATION: Monitor for s/s of bleeding Monitor hemoglobin, coagulation studies as needed SKIN: Pressure ulcer prevention per facility protocol Specialty mattress ORTHO/REHAB: Continue PT/OT Prophylaxis: Continue GI and DVT prophylaxis Code Status: Full Resuscitation Disposition: TBD Other: Total patient care time: 35 minutes NICK LEE Nov 03, 2024 09:34
--- NOTE | 2024-11-03 10:34 | EKG ---
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: [id number] : 1950 Requested By: TAMIKO HICKEY Order Number: [id number] Reading MD: Eve Schaefer Measurements Intervals [place] Rate: 62 P: 38 FL: 214 QRS: -60 QRSD: 115 T: -66 QT: 444 QTc: 452 Interpretive Statements Sinus rhythm with first degree AV block Multiple ventricular premature complexes Nonspecific IVCD with LAD Inferior infarct, age indeterminate Probable anterolateral infarct, age indeterm Compared to ECG 10/18/2023 15:07:10 Intraventricular conduction delay now present Sinus tachycardia no longer present Fusion complex(es) no longer present Left-axis deviation no longer present Myocardial infarct finding still present Electronically Signed On 11-03-2024 13:22:19 CDT by Eve Schaefer Please click the below link to view image of tracing.
--- NOTE | 2024-11-03 10:34 | EKG ---
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
[2024-11-03 12:00] VITALS: BP 149/76; PULSE 96; RESP 19; TEMP 97.9
--- NOTE | 2024-11-03 14:18 | HMCSR ---
APPROVED REPORT EXAM: Two-dimensional and M-mode echocardiogram with Doppler and color Doppler. INDICATION ICD: Near syncope 2D Dimensions IVSd0.9 (0.7-1.1cm)LVEF(%)46.4 (>50%)LVED Vol(simp.)155.0 mL LVDd5.5 (3.8-5.6cm)FS(%)23 %LVES Vol(simp.)65.0 mL PWd1.3 (0.7-1.1cm)LA (2D)4.1 (1.6-4.0cm) IVSs1.1 cmAo Root(2D)3.7 (2.0-3.7cm) LVDs4.2 (2.5-4.0cm)LVOT diam2.4 (1.8-2.4cm) PWs1.5 cm Deformation Strain Apical 4-16.8 % Apical 2-19.6 % Apical 3-15.9 % Global Strain-17.4 % M-Mode Dimensions EPSS1.2 cm LA (MM)3.9 (1.6-4.0cm) Ao Root(MM)3.1 (2.0-3.7cm) Aortic Valve AoV Vmax2.5 m/Dru Peak GR24.9 mmHgLVOT Vmax0.9 m/s AoV VTI0.4 mAo Mean GR13.2 mmHgLVOT VTI0.19 m SHIRIN (VMAX)1.67 cm2AVA (VTI) 2.1 cm2 Mitral Valve MV E Vmax78.5 cm/sDECEL Nern629 ms MV A Vmax91.6 cm/sP 1/2 T50 ms E/A ratio0.9MVA (PHT)4.4 cm2 TDI E/E' Ccgbnj39.9E/E' Lateral8.3 Medial E' Peak V6.60 cm/sLateral E' Peak V9.45 cm/s Pulmonary Valve PV Vmax1.3 m/sPV VTI0.20 mPV Mean GR3.6 mmHg PV Peak GR6.8 mmHg Tricuspid Valve TR Vmax2.2 m/sRAP (EST) 3 vdYsZYQE00.3 mmHg TR Peak GR21.3 mmHg Left Ventricle The left ventricle is normal size. GLS -17.0%. Septal bounce is present. There is normal left ventric ular wall thickness. The LVEF is > 55%. The left ventricular diastolic function is normal. Right Ventricle The right ventricle is normal size. The right ventricular systolic function is normal. Atria The left atrium size is normal. The right atrium size is normal. Aortic Valve Aortic valve is trileaflet and thickened. No aortic regurgitation is present. There is no aortic valv ular stenosis. Mitral Valve The mitral valve is mildly thickened. Mitral valve leaflets open well. There is mild mitral valve reg urgitation noted. There is no mitral valve stenosis. Tricuspid Valve The tricuspid valve is normal in structure. There is trace of tricuspid valve regurgitation noted. Pulmonic Valve The pulmonary valve is normal in structure. There is no pulmonic valvular regurgitation. Great Vessels The aortic root is normal in size. The IVC is normal in size and collapses >50% with inspiration. Pericardium There is no pericardial effusion. Other Information Quality : AdequateRhythm : NSR with PVCs Conclusion The LVEF is > 55%. Septal bounce is present. Mild mitral regurgitation.
--- NOTE | 2024-11-03 14:19 | DS ---
[facility] DISCHARGE SUMMARY Date Patient Seen: Nov 03, 2024 Time of Visit: 14:19 Supervising Physician: Dr. Obinna Yao Primary Care Physician: [Dr. Hanson ] Outpatient Specialists: [Dr. Mead-cardiology ] Inpatient Consults: [ ] HOSPITAL COURSE: HPI (per admitting provider) Patient is a 74-year-old male with PMH significant for CAD s/p CABG and stent, PVD, HTN, HLD, chronic nicotine disorder and daily ETOH dependence who has pres ented tot he ED accompanied by his daughter concerning acute onset dizziness and near-syncope. Patient claims that he was in his usual state of health and was at a second-hand store when he suddenly felt the symptoms and decided to go back to the car when he felt he was going to faint, his daughter caught him and sat him down inside the car. Apparently, the patient took more than his usual dose of Metoprolol and Lisinopril. ED work-up was unremarkable except for large hiatal hernia without complaint of abdominal pain. Physical assessment was unrevealing without focal neurologic deficits. Goals of care were discussed with the patient verbalizing understanding and agreement. While in the ED, as I was talking to him, he claims he was experiencing chest pain, central on the chest without radiation or migration with shortness of breath. EKG was done that showed controlled rate of afib and aflutter which he claims he never had any history of. A repeat was done after few minutes and it came back to NSR. On cardiac telemetry it was sustaining NSR rate of 60-70. The patient was treated for the following problems: Patient was admitted for near syncopal episode secondary to an overdose of metoprolol and lisinopril. Patient stated that he was filling up his weekly pill [employer] and set aside his pills for the night however did not remember taking them so he took the dose that he is placed in his pill [employer] for that day. Upon evaluation and discharge patient is at baseline, vitals are within normal limits, echo shows unremarkable findings, and patient has been discharged with education on caution when taking in sorting his medications. Advised to follow up with primary in the next week. ACTIVE PROBLEM LIST FOR THE HOSPITALIZATION: [id number] Large hiatal hernia-POA Medication error [id number] Atypical chest pain-POA CHRONIC PROBLEMS: continue previous management per PCP unless otherwise indicated Paroxysmal afib/vuxwqick-lwx-xvels and transient: POA Macrocytic anemia-POA PVD Chronic nicotine disorder: smokes less than half-a-pack a day for more than 50 years Chronic ETOH disorder: drinks about 6-pack of beer a day CAD s/p CABG Primary HTN HLD Chronic hernia [employer] FINDINGS/RECOMMENDATIONS: [ ] PROCEDURES: as mentioned above DISCHARGE MEDICATIONS: Pt hemodynamically stable and afebrile at time of discharge. PCP notified of patients admission, hospital course and discharge. PHYSICAL EXAM: GENERAL: alert, weak, awake oriented x 3 HEENT: EOMI, Sclera non icteric, moist mucosa NECK: Supple, no JVD, trachea midline LUNGS: Clear breath sounds bilaterally. No wheezes HEART: Regular rate and rhythm. Normal S1 and S2, without murmurs ABD: Abdomen soft, nontender. Bowel sounds present EXT: No clubbing cyanosis or edema NEURO: Alert and oriented to person, follows commands FOLLOW-UP: Follow-up with PCP in 2-3 days RECOMMENDATIONS: See Discharge Instructions This case was seen and discussed with my supervising physician. More than 30 minutes spent on discharge process, including evaluation of the patient, discussion with nursing staff, medication reconciliation and follow-up appointments NICK LEE Nov 03, 2024 14:19
--- NOTE | 2024-11-03 15:30 | NUR ---
D/C INSTRUCTIONS GIVEN AND ACKNOWLEDGED BY PATIENT/DAUGHTER. IV REMOVED
== END 2024-11-03 17:15 | disposition home or self-care (01) ==
LOC: EDH 16:44 → EDHIP 16:45 → 3CH 23:06
PROVIDERS: ADMIT Internal Medicine Critical Care Medicine; ATTEND Internal Medicine Critical Care Medicine
DX: R07.89 Other chest pain (principal); R55 Syncope and collapse; K44.9 Diaphragmatic hernia without obstruction or gangrene; D64.9 Anemia, unspecified; E11.51 Type 2 diabetes mellitus with diabetic peripheral angiopathy without gangrene; I73.9 Peripheral vascular disease, unspecified; I10 Essential (primary) hypertension; R60.0 Localized edema; I25.10 Atherosclerotic heart disease of native coronary artery without angina pectoris; I95.9 Hypotension, unspecified; I48.0 Paroxysmal atrial fibrillation; E78.00 Pure hypercholesterolemia, unspecified; F17.210 Nicotine dependence, cigarettes, uncomplicated; Z95.1 Presence of aortocoronary bypass graft; Z79.899 Other long term (current) drug therapy
CPT/HCPCS: 96360; 84484 ×2; 80048 ×2; 85025 ×2; 85378; 82948 ×3; 36415 ×2; 71045; 70450; 71270; 74176; 93970; 93880; 93925; 99291; 93005 ×3; 96361; 83036; 84443; 83540; 83550; 83735; 84100; 80061; 85610; 82607; 82746; 93306; 93356; G0378 ×21; J7120; Q9967